=== PATIENT | male | born 1960 | race Caucasian/White ===

== ENCOUNTER 2020-05-20 12:12 | Outpatient (REF) | payer OTHER, SELFPAY | END 2020-05-20 12:13 | disposition home or self-care (01) | LOC: HO.LAB 12:12 | PROVIDERS: Visit Provider Internal Medicine | DX: Z20.828 Contact with and (suspected) exposure to other viral communicable diseases (principal) | CPT/HCPCS: C9803; U0003 ==

== ENCOUNTER 2020-06-09 09:06 | Outpatient (REF) | payer OTHER, SELFPAY ==
--- NOTE | 2020-06-09 | XR_ITS ---
EXAMINATION: XR CHEST CLINICAL INFORMATION: Cough, history of COVID 19. COMPARISON: 04/22/2012 chest radiographs. TECHNIQUE: 2 views of the chest were obtained. FINDINGS: The lungs are clear. The heart and mediastinal structures are unremarkable. XR/XR chest 2V IMPRESSION: No acute cardiopulmonary process. Given the history of COVID pneumonia, if symptoms persist or worsen, short-term repeat radiographic follow-up is recommended as clinically indicated to better assess for more acute changes.
== END 2020-06-09 09:07 | disposition home or self-care (01) ==
LOC: HO.HMGCX 09:06
PROVIDERS: PCP Internal Medicine; Visit Provider Internal Medicine
DX: R05 Cough (principal); Z86.19 Personal history of other infectious and parasitic diseases
CPT/HCPCS: 71046

== ENCOUNTER 2020-12-29 09:51 | Outpatient (RCR) | payer OTHER, SELFPAY | END 2021-06-28 13:30 | disposition home or self-care (01) | LOC: HO.WCC 09:51 | PROVIDERS: Visit Provider Surgery | DX: I87.332 Chronic venous hypertension (idiopathic) with ulcer and inflammation of left lower extremity (principal); L97.822 Non-pressure chronic ulcer of other part of left lower leg with fat layer exposed; L97.329 Non-pressure chronic ulcer of left ankle with unspecified severity; L24.89 Irritant contact dermatitis due to other agents; Z87.891 Personal history of nicotine dependence | CPT/HCPCS: 11042; 99212; 99213; 99214 ==

== ENCOUNTER 2021-03-01 12:37 | Outpatient (REF) | payer OTHER, SELFPAY ==
--- NOTE | ~2021-03-01 | US_ITS ---
EXAMINATION: RIGHT and LEFT LOWER EXTREMITY VENOUS ULTRASOUND (Reflux Exam) CLINICAL INDICATION: Wound COMPARISON: None. TECHNIQUE: Color flow triplex imaging and compression Doppler was performed to evaluate both the deep and the superficial systems on the left To evaluate the superficial system, the examination was performed in the upright position. Color-flow Doppler ultrasound and compression ultrasound were utilized. In addition, maneuvers were utilized to demonstrate reflux. FINDINGS: DEEP VENOUS ULTRASOUND OF THE LEFT LOWER EXTREMITY: Respiratory variation, normal compression and augmented flow are noted in the left common femoral vein as well as the left popliteal vein and there is no evidence of deep venous thrombosis at these locations. There is no evidence of reflux in the deep system in either the common femoral vein or the popliteal vein. . There is no evidence of a Kline's cyst. SUPERFICIAL ULTRASOUND WITH DOPPLER OF LEFT LOWER EXTREMITY: Left great saphenous vein at the saphenofemoral junction measures 7 mm, at the mid thigh 6 mm, amufq-kfk-wtyo 5 mm, przzy-tef-iiuh 5 mm, at mid calf 4 mm and at the ankle measures 4 mm. There is left greater saphenous vein reflux measuring maximum 2.3 seconds above the knee. There is an accessory medial greater saphenous vein that measures 4 mm and does not demonstrate reflux. The left small saphenous vein measures 3 to 7 mm and demonstrates 0.7 second reflux in the distal calf. There are 2 perforators in the mid thigh measuring 3 mm in the proximal calf measuring 2 mm that do not demonstrate reflux. There is a varicosity at the knee that measures 4 mm and demonstrates 1.5 second reflux. There are additional varicosities in the calf measuring between 3 and 5 mm that do not demonstrate reflux. There is left thigh shotty lymphadenopathy. US/US venous duplex LE LT IMPRESSION: No evidence of DVT or deep venous reflux. Left greater saphenous vein reflux. Left lesser saphenous vein reflux. .
== END 2021-03-01 12:38 | disposition home or self-care (01) ==
LOC: HO.US 12:37
PROVIDERS: Visit Provider Surgery
DX: I87.322 Chronic venous hypertension (idiopathic) with inflammation of left lower extremity (principal); L24.89 Irritant contact dermatitis due to other agents
CPT/HCPCS: 93971

== ENCOUNTER → 2021-05-19 12:53 | Outpatient (BNVA) | payer OTHER, SELFPAY | PROVIDERS: PCP Internal Medicine; Referring Provider Internal Medicine; Visit Provider Surgery Vascular Surgery ==

== ENCOUNTER → 2021-05-27 09:16 | Outpatient (BNVA) | payer OTHER, SELFPAY | PROVIDERS: PCP Internal Medicine; Visit Provider Surgery Vascular Surgery | DX: I83.12 Varicose veins of left lower extremity with inflammation (principal) | CPT/HCPCS: 36475 ==

== ENCOUNTER 2021-05-30 15:37 | Outpatient (REF) | payer OTHER, SELFPAY ==
--- NOTE | ~2021-05-30 | US_ITS ---
EXAMINATION: US VENOUS ULTRASOUND WITH DOPPLER LOWER EXTREMITY, LEFT CLINICAL INFORMATION: Left leg pain. Radiofrequency ablation done. COMPARISON: None TECHNIQUE: Ultrasound of the deep veins is performed from the hip to the calf with compression sonography and color and pulse Doppler assessment. Spectral analysis with color-flow imaging is performed. FINDINGS: The left greater saphenous vein is thrombosed approximately 2.9 cm from the femoral venous junction. No flow seen within the left saphenous vein. Imaging through the left common femoral, superficial femoral, profunda veins there is normal venous flow with no evidence of thrombosis. The popliteus patent as well. Below the catheter peroneal vein is not seen. The posterior tibial vein is widely patent. US/US venous duplex LE LT IMPRESSION: Occluded left greater saphenous vein measuring 2.9 cm away from the femoral venous junction. No DVT seen in the left lower extremity.
== END 2021-05-30 15:38 | disposition home or self-care (01) ==
LOC: HO.US 15:37
PROVIDERS: PCP Internal Medicine; Visit Provider Surgery Vascular Surgery
DX: M79.605 Pain in left leg (principal); Z79.899 Other long term (current) drug therapy
CPT/HCPCS: 93971

== ENCOUNTER → 2021-06-14 10:56 | Outpatient (BNVA) | payer OTHER, SELFPAY | PROVIDERS: PCP Internal Medicine; Visit Provider Surgery Vascular Surgery | DX: I83.12 Varicose veins of left lower extremity with inflammation (principal) | CPT/HCPCS: 99212 ==

== ENCOUNTER → 2021-06-17 12:25 | Outpatient (BNVA) | payer OTHER, SELFPAY | PROVIDERS: PCP Internal Medicine; Visit Provider Surgery Vascular Surgery | DX: I83.12 Varicose veins of left lower extremity with inflammation (principal); M79.605 Pain in left leg | CPT/HCPCS: 36475 ==

== ENCOUNTER 2021-06-20 12:40 | Outpatient (REF) | payer OTHER, SELFPAY ==
--- NOTE | ~2021-06-20 | US_ITS ---
EXAMINATION: US VENOUS ULTRASOUND WITH DOPPLER LOWER EXTREMITY, LEFT CLINICAL INFORMATION: This is a 61-year-old male with left leg pain. The patient has a history of radiofrequency ablation. The patient is status post occlusion of the left small saphenous vein. COMPARISON: None TECHNIQUE: Ultrasound of the deep veins is performed from the hip to the calf with compression sonography and color and pulse Doppler assessment. Spectral analysis with color-flow imaging is performed. FINDINGS: There is normal venous compression and respiratory variation and augmented flow. The visualized common femoral vein, superficial femoral vein, profunda femoral vein, popliteal vein, and the trifurcation region shows no evidence of deep venous thrombosis. There is no significant popliteal fossa cyst. The left small saphenous vein appears thrombosed 2.3 cm from the sapheno popliteal junction. There is no extension of thrombus into the deep venous system. US/US venous duplex LE LT IMPRESSION: 1. No DVT demonstrated in the left lower extremity. 2. The left small saphenous vein is thrombosed 2.3 cm from the sapheno popliteal junction.
== END 2021-06-20 12:41 | disposition home or self-care (01) ==
LOC: HO.US 12:40
PROVIDERS: PCP Internal Medicine; Visit Provider Surgery Vascular Surgery
DX: M79.605 Pain in left leg (principal)
CPT/HCPCS: 93971

== ENCOUNTER → 2021-06-30 14:54 | Outpatient (BNVA) | payer OTHER, SELFPAY | PROVIDERS: PCP Internal Medicine; Visit Provider Surgery Vascular Surgery | DX: I83.11 Varicose veins of right lower extremity with inflammation (principal); Z98.890 Other specified postprocedural states | CPT/HCPCS: 99212 ==

== ENCOUNTER 2021-07-26 15:15 | Outpatient (RCR) | payer OTHER, SELFPAY | END 2022-01-23 14:09 | disposition home or self-care (01) | LOC: HO.WCC 15:15 | PROVIDERS: PCP Internal Medicine; Visit Provider Physician Assistant | DX: I87.313 Chronic venous hypertension (idiopathic) with ulcer of bilateral lower extremity (principal); L97.822 Non-pressure chronic ulcer of other part of left lower leg with fat layer exposed; L97.812 Non-pressure chronic ulcer of other part of right lower leg with fat layer exposed; L24.89 Irritant contact dermatitis due to other agents; I10 Essential (primary) hypertension; I87.2 Venous insufficiency (chronic) (peripheral); Z87.891 Personal history of nicotine dependence | CPT/HCPCS: 11102; 17250; 88304; 99212; 99213; 99214; 99215 ==

== ENCOUNTER 2021-10-18 10:10 | Outpatient (REF) | payer OTHER, SELFPAY ==
--- NOTE | ~2021-10-18 | XR_ITS ---
EXAMINATION: X-RAY RIGHT KNEE X-RAY LEFT KNEE CLINICAL INFORMATION: Evaluate progression of osteoarthritis. COMPARISON: 08/09/2019. TECHNIQUE: 4 views of each knee. FINDINGS: Right knee: No acute fractures or malalignment. Severe osteoarthritis of the medial compartment and moderate osteoarthritis of the lateral and patellofemoral compartments are not significantly changed since 2019. Patellar enthesophytes. No erosions or chondrocalcinosis. Normal soft tissues. No joint effusions. Left knee: No acute fractures or malalignment. Severe osteoarthritis of the medial compartment and moderate osteoarthritis of the lateral patellofemoral compartments are not significantly changed since 2019. Patellar enthesophytes. No erosions or chondrocalcinosis. No joint effusions. Normal soft tissues. XR/XR knee RT 4V IMPRESSION: No acute fractures or malalignment. No significant progression since 2019 with redemonstration of severe bilateral medial compartmental osteoarthritis and moderate patellofemoral and lateral compartmental osteoarthritis.
--- NOTE | ~2021-10-18 | XR_ITS ---
EXAMINATION: X-RAY RIGHT KNEE X-RAY LEFT KNEE CLINICAL INFORMATION: Evaluate progression of osteoarthritis. COMPARISON: 08/09/2019. TECHNIQUE: 4 views of each knee. FINDINGS: Right knee: No acute fractures or malalignment. Severe osteoarthritis of the medial compartment and moderate osteoarthritis of the lateral and patellofemoral compartments are not significantly changed since 2019. Patellar enthesophytes. No erosions or chondrocalcinosis. Normal soft tissues. No joint effusions. Left knee: No acute fractures or malalignment. Severe osteoarthritis of the medial compartment and moderate osteoarthritis of the lateral patellofemoral compartments are not significantly changed since 2019. Patellar enthesophytes. No erosions or chondrocalcinosis. No joint effusions. Normal soft tissues. XR/XR knee LT 4V IMPRESSION: No acute fractures or malalignment. No significant progression since 2019 with redemonstration of severe bilateral medial compartmental osteoarthritis and moderate patellofemoral and lateral compartmental osteoarthritis.
== END 2021-10-18 10:11 | disposition home or self-care (01) ==
LOC: HO.XRAY 10:10
PROVIDERS: PCP Internal Medicine; Visit Provider Internal Medicine
DX: M17.0 Bilateral primary osteoarthritis of knee (principal)
CPT/HCPCS: 73564

== ENCOUNTER 2021-12-20 10:03 | Outpatient (REF) | payer OTHER, SELFPAY ==
--- NOTE | ~2021-12-20 | US_ITS ---
EXAMINATION: RIGHT AND LEFT LOWER EXTREMITY VENOUS ULTRASOUND (REFLUX EXAM) CLINICAL INDICATION: Venous insufficiency and ulcers. COMPARISON: 06/20/2021 and studies dating back to 04/02/2018 TECHNIQUE: Color flow triplex imaging and compression Doppler was performed to evaluate both the deep and the superficial systems bilaterally. To evaluate the superficial system, the examination was performed in the upright position. Color-flow Doppler ultrasound and compression ultrasound were utilized. In addition, maneuvers were utilized to demonstrate reflux. FINDINGS: 1. DEEP VENOUS ULTRASOUND OF THE RIGHT LOWER EXTREMITY: Respiratory variation, normal compression and augmented flow are noted in the right common femoral vein as well as the right popliteal vein and there is no evidence of deep venous thrombosis at these locations. There is no evidence of reflux in the deep system in either the common femoral vein or the popliteal vein. There is a 3.9 x 1.3 x 3.9 cm popliteal fossa cyst. 2. SUPERFICIAL ULTRASOUND WITH DOPPLER OF RIGHT LOWER EXTREMITY: The right great saphenous vein at the saphenofemoral junction measures 9 mm, at the midthigh 4 mm, rwmck-zkc-whbe 4 mm, wjzrv-hzz-bhud 3 mm, at midcalf 3 mm and at the ankle measures 3 mm. No venous insufficiency is seen at the saphenofemoral junction or proximal thigh. At the mid thigh, there is reflux of 1.6 seconds. From knee through ankle there is reflux seen out to greater than 3 seconds, at the knee, zxhvo-mud-lnng, mid calf, and L2, 2 seconds at the ankle. The right small saphenous vein measures 3 mm and shows no reflux. Within the proximal calf there is a 2 mm handwriting expert without reflux. Varicose veins are seen within the proximal thigh without reflux, at the knee measuring up to 3 mm in diameter and with reflux greater than 3 seconds, and in the mid calf where there is no reflux. 3. DEEP VENOUS ULTRASOUND OF THE LEFT LOWER EXTREMITY: Respiratory variation, normal compression and augmented flow are noted in the left common femoral vein as well as the left popliteal vein and there is no evidence of deep venous thrombosis at these locations. There is no evidence of reflux in the deep system in either the common femoral vein or the popliteal vein. There is a 6.1 x 1.8 x 3.8 cm popliteal fossa cyst. 4. SUPERFICIAL ULTRASOUND WITH DOPPLER OF LEFT LOWER EXTREMITY: Left great saphenous vein at the saphenofemoral junction measures 8 mm, at the midthigh 2 mm, impux-qrr-dwuw 3 mm, lrrpb-vaj-bolk 5 mm, at midcalf 3 mm and at the ankle measures 6 mm. The only reflux identified is at the ankle of greater than 3 seconds. The left small saphenous vein measures 5 mm and shows no reflux. There is a 3 mm handwriting expert within the distal small saphenous vein off of the posterior tibial vein with reflux time of approximately 0.7 seconds. Within the mid thigh and calf, there are 3 mm perforators without reflux. Varicosities are seen within the proximal thigh without reflux, in the mid thigh with reflux up to 1.6 seconds, and within the distal calf without reflux. Status post RFA with greater saphenous vein thrombosis approximately 3.8 cm from the saphenofemoral junction. US/US venous duplex LE BI IMPRESSION: 1. No evidence of acute deep venous thrombosis of the right or left lower extremities. 2. No evidence of reflux at the level of the saphenofemoral junctions or proximal thigh bilaterally. Reflux is noted within the greater saphenous vein at the mid thigh and from the knee to ankle. Left lower extremity greater saphenous vein reflux seen only at the ankle. 3. Bilateral popliteal fossa cysts.
== END 2021-12-20 10:04 | disposition home or self-care (01) ==
LOC: HO.US 10:03
PROVIDERS: Absent Provider Surgery Vascular Surgery; Visit Provider Physician Assistant
DX: L97.822 Non-pressure chronic ulcer of other part of left lower leg with fat layer exposed (principal); L97.812 Non-pressure chronic ulcer of other part of right lower leg with fat layer exposed; I87.2 Venous insufficiency (chronic) (peripheral)
CPT/HCPCS: 93970

== ENCOUNTER → 2021-12-22 09:12 | Outpatient (BNVA) | payer OTHER, SELFPAY | PROVIDERS: PCP Internal Medicine; Visit Provider Surgery Vascular Surgery | DX: I83.11 Varicose veins of right lower extremity with inflammation (principal) | CPT/HCPCS: 99212 ==

== ENCOUNTER → 2021-12-23 07:22 | Outpatient (BNVA) | payer OTHER, SELFPAY | PROVIDERS: PCP Internal Medicine; Visit Provider Surgery Vascular Surgery | DX: I83.11 Varicose veins of right lower extremity with inflammation (principal) | CPT/HCPCS: 36475 ==

== ENCOUNTER 2021-12-26 13:35 | Outpatient (REF) | payer OTHER, SELFPAY ==
--- NOTE | ~2021-12-26 | US_ITS ---
EXAMINATION: TRIPLEX SCANNING OF RIGHT LOWER EXTREMITY; SUPERFICIAL ULTRASOUND WITH DOPPLER OF RIGHT LOWER EXTREMITY CLINICAL INFORMATION: Status post ablation of the right great saphenous vein. Originally performed on 12/23/2021. COMPARISON: 12/20/2021. TECHNIQUE: Color flow triplex imaging and compression Doppler were performed as well as superficial ultrasound with Doppler. FINDINGS: TRIPLEX SCANNING OF RIGHT LOWER EXTREMITY: Respiratory variation, normal compression and augmented flow are noted throughout the lower extremity. The visualized common femoral vein, femoral vein, profunda femoral vein, popliteal vein and the calf veins show no evidence of deep venous thrombosis. There is no evidence of Kline's cyst. SUPERFICIAL ULTRASOUND WITH DOPPLER OF RIGHT LOWER EXTREMITY: The right great saphenous vein is occluded from the access site to just before the sapheno-femoral junction. There is no extension of thrombus into the deep system. US/US venous duplex LE RT IMPRESSION: 1. Normal triplex scan of the right without evidence of deep venous thrombosis. 2. Excellent appearance status post ablation of the right great saphenous vein.
== END 2021-12-26 13:36 | disposition home or self-care (01) ==
LOC: HO.US 13:35
PROVIDERS: Visit Provider Surgery Vascular Surgery
DX: M79.604 Pain in right leg (principal)
CPT/HCPCS: 93971

== ENCOUNTER → 2022-01-12 14:59 | Outpatient (BNVA) | payer OTHER, SELFPAY | PROVIDERS: PCP Internal Medicine; Visit Provider Surgery Vascular Surgery | DX: I83.11 Varicose veins of right lower extremity with inflammation (principal) | CPT/HCPCS: 99212 ==

== ENCOUNTER 2022-01-16 12:06 | Outpatient (REF) | payer OTHER, SELFPAY ==
--- NOTE | ~2022-01-16 | XR_ITS ---
EXAMINATION: XR KNEE AP STANDING CLINICAL INFORMATION: Pain COMPARISON: Previous x-rays most recent October 2021 TECHNIQUE: AP bilateral standing view of the knees was obtained. FINDINGS: There is bilateral medial femoral tibial arthritis with joint space narrowing and osteophyte formation. XR/XR knee standing BI IMPRESSION: Bilateral arthritis at the medial femoral tibial joints.
== END 2022-01-16 12:07 | disposition home or self-care (01) ==
LOC: HO.HOSX 12:06
PROVIDERS: Visit Provider Orthopaedic Surgery
DX: M17.0 Bilateral primary osteoarthritis of knee (principal)
CPT/HCPCS: 73565; 99202

== ENCOUNTER 2022-03-29 12:26 | Outpatient (REF) | payer OTHER, SELFPAY ==
--- NOTE | ~2022-03-29 | XR_ITS ---
EXAMINATION: XR LUMBOSACRAL SPINE CLINICAL INFORMATION: Pain. COMPARISON: No similar priors. TECHNIQUE: Three views of the lumbosacral spine. FINDINGS: No acute compression deformities or malalignment. Severe disc space narrowing and facet arthropathy with neural foraminal encroachment and canal narrowing at L4-L5 and L5-S1. Mild to moderate lumbar spondylosis elsewhere. Prominent multilevel anterior marginal osteophytes are noted. SI joints are symmetric. No significant soft tissue abnormality except for atherosclerotic disease of the abdominal aorta. XR/XR lumbar spine 2-3V IMPRESSION: 1. No acute compression deformities or malalignment. 2. Severe lumbar spondylosis at L4-L5 and L5-S1.
== END 2022-03-29 12:27 | disposition home or self-care (01) ==
LOC: HO.HMGCX 12:26
PROVIDERS: PCP Internal Medicine; Visit Provider Internal Medicine
DX: M54.50 Low back pain, unspecified (principal)
CPT/HCPCS: 72100

== ENCOUNTER 2022-03-31 08:30 | Outpatient (RCR) | payer OTHER, SELFPAY | END 2022-05-30 11:50 | disposition home or self-care (01) | LOC: HO.WCC 08:30 | PROVIDERS: PCP Internal Medicine; Visit Provider Physician Assistant | DX: I87.312 Chronic venous hypertension (idiopathic) with ulcer of left lower extremity (principal); L97.322 Non-pressure chronic ulcer of left ankle with fat layer exposed; G62.9 Polyneuropathy, unspecified; L30.9 Dermatitis, unspecified; Z87.891 Personal history of nicotine dependence | CPT/HCPCS: 17250; 97597; 97602; 99212; 99213 ==

== ENCOUNTER 2022-04-14 07:22 | Outpatient (REF) | payer OTHER, SELFPAY ==
--- NOTE | ~2022-04-14 | MR_ITS ---
EXAMINATION: MR LUMBAR SPINE WITHOUT CONTRAST CLINICAL INFORMATION: Lumbar pain. X-ray shows severe spondylosis L4-S1. Rule out disc/stenosis. COMPARISON: None TECHNIQUE: MRI of the lumbar spine was obtained using routine sequences without contrast. FINDINGS: The lumbar vertebral bodies maintain normal heights and alignment. There is severe disc height loss at L5-S1 and mild multilevel disc height loss at other levels. There is no bone marrow edema. The distal spinal cord appears normal. The conus medullaris terminates normally at the L1 level. There is moderate to severe fatty atrophy of the posterior paraspinal musculature. Enlarged but benign-appearing retroperitoneal lymph nodes are demonstrated, similar compared with the abdominal CT from 09/01/2019. SPINAL LEVELS: L1-L2: Disc bulging with ligament flavum infolding, facet arthropathy, and epidural lipomatosis resulting in mild spinal canal stenosis. No neural foraminal stenosis. L2-L3: Disc bulging with ligament flavum infolding, facet arthropathy, and epidural lipomatosis resulting in moderate spinal canal stenosis. Mild left neural foraminal stenosis. L3-L4: Disc bulging with ligament flavum infolding, moderate facet arthropathy and epidural lipomatosis resulting in moderate to severe spinal canal stenosis and left more than right subarticular stenosis. Left foraminal/extraforaminal protrusion contacts the exiting left L3 nerve root. L4-L5: Disc bulging with ligamentum flavum infolding, moderate to severe facet arthropathy, and epidural lipomatosis results in mild to moderate spinal canal stenosis and bilateral subarticular stenosis with compression of the traversing right L5 nerve root. Disc bulging with osteophytic ridging compresses the exiting right L4 nerve root. L5-S1: Disc bulging with moderate to severe facet arthropathy results in left more than right subarticular stenosis and mild left neural foraminal stenosis with abutment of the exiting left L5 nerve root. A small sequestered disc fragment is seen posterior to the L5 vertebral body without associated nerve root compression. MR/MR lumbar spine wo con IMPRESSION: 1. Multilevel degenerative spondylotic changes in the setting of significant epidural lipomatosis. Moderate to severe fatty atrophy of the posterior paraspinal muscles. 2. At L2-L3 there is moderate spinal canal stenosis. 3. At L3-L4 there is moderate to severe spinal canal stenosis and left more than right subarticular stenosis. Left foraminal/extraforaminal protrusion contacts the exiting left L3 nerve root. 4. At L4-L5 there is mild to moderate spinal canal stenosis and bilateral subarticular stenosis with compression of the traversing right L5 nerve root. Disc bulging with osteophytic ridging compresses the exiting right L4 nerve root. 5. At L5-S1 there is left more than right subarticular stenosis with abutment of the exiting left L5 nerve root. A small sequestered disc fragment is seen posterior to the L5 vertebral body without associated nerve root compression.
== END 2022-04-14 07:23 | disposition home or self-care (01) ==
LOC: HO.MRI 07:22
PROVIDERS: Visit Provider Internal Medicine
DX: M54.50 Low back pain, unspecified (principal)
CPT/HCPCS: 72148

== ENCOUNTER 2023-03-26 07:57 | Outpatient (RCR) | payer OTHER, SELFPAY | END 2023-05-21 17:00 | disposition home or self-care (01) | LOC: HO.WCC 07:57 | PROVIDERS: PCP Internal Medicine; Visit Provider Physician Assistant | DX: Z09 Encounter for follow-up examination after completed treatment for conditions other than malignant neoplasm (principal); I73.9 Peripheral vascular disease, unspecified; I87.2 Venous insufficiency (chronic) (peripheral); G62.9 Polyneuropathy, unspecified; L30.9 Dermatitis, unspecified; I89.0 Lymphedema, not elsewhere classified; Z87.891 Personal history of nicotine dependence; Z87.2 Personal history of diseases of the skin and subcutaneous tissue | CPT/HCPCS: 11042; 11045; 17250; 99212 ==

== ENCOUNTER 2024-02-14 09:47 | Outpatient (AMB) | payer OTHER, SELFPAY ==
--- NOTE | 2024-02-14 09:48 | MHC.OFFVIS ---
Vital Signs 02/14/24 09:50 Height 6 ft Weight 367 lb BMI 49.8 Intake Visit Reasons: Colonoscopy Screening Intake Note: This patient presents for recall Colonoscopy Screening. Pt c/o; Last colonoscopy: 07/12/2012 Store Host Required: No Accompanied by: Self / Same As Patient Allergies famotidine Allergy (Verified 02/14/24 09:48) Itching epidural medication Allergy (Unknown, Uncoded 02/14/24 09:48) vomiting - hallucinations Medication List - Last Reconciled 02/14/24 by Praful Calvillo MD gabapentin mg PO lisinopril 10 mg PO DAILY losartan 50 mg PO DAILY metoprolol succinate ER 50 mg PO DAILY risperidone 3 mg PO BEDTIME simvastatin 20 mg PO BEDTIME sulindac 200 mg PO BID trazodone 300 mg PO BEDTIME HPI HPI Colonoscopy Screening: Details: 64-year-old male here to schedule for screening colonoscopy. His last colonoscopy was in 2012 He has a history of emergency Norbert's procedure for perforated diverticulitis in 2012. He had his colostomy reversed in 2013. He currently denies significant complaints. He does admit to having frequent loose stools and says that this is due to his multiple medications He says he has gained a lot of weight the years. He also has chronic back problems now and has difficulty moving around ambulating. He says he is on disability because of this. He is a saw a diabetic. [facility] Medical History (Updated 02/14/24 @ 10:12 by Praful Calvillo MD) Morbid obesity Neuropathy Borderline diabetic Chronic back pain Colon cancer screening Surgical History No pertinent past surgical history Family History (Updated 02/14/24 @ 10:00 by Helen Langford Gregor) Other Family history unknown Social History Unable to assess alcohol history related to: Unknown Patient Tobacco Use Status: Tobacco use Unknown Review of Systems Const Denies chills and Denies fever(s) Card Denies chest pain, Denies dyspnea and Reports dyspnea on exertion Resp Denies cough, Denies dyspnea and Reports dyspnea on exertion GI Denies hematochezia and Denies change in bowel habits Denies hematuria and Denies difficulty urinating Musc Reports abnormal gait, Reports back pain, Reports myalgias, Reports arthralgias and Reports limited range of motion Neuro Reports abnormal gait, Denies focal weakness and Denies convulsions Psych Denies depression and Denies mood swings Physical Exam Const Other: Appears morbidly obese, walks with a cane General: comfortable and no acute distress Orientation/consciousness: patient oriented x3 Neck Neck: Yes no lymphadenopathy Resp Auscultation: clear to auscultation bilaterally Cardio Rhythm: regular rhythm GI Other: Very protuberant of the abdomen, large, multiple hernias with of his bowel loop involvement, loss of domain, nontender, reducible Palpation (GI): Soft to palpation, nontender and no guarding Neuro General: patient oriented x3 Assessment & Plan Assessment & Plan (1) Colon cancer screening: Code(s): Z12.11 - Encounter for screening for malignant neoplasm of colon Category: Medical Plan: I reviewed with him the technique of colonoscopy for screening. I explained the risks including but not limited to bleeding and perforation, as well as the benefits and alternatives. He does have multiple medical issues and is morbidly obese now. He has large and multiple abdominal wall hernias with bowel loops. I explained to him the risks of injury to this bowel loops in view of his hernias. I explained the option of doing a Cologuard test as a screening tool. He says he would rather go for a Cologuard test for now. He is planning to do a weight loss program in view of his morbid obesity. Coding Level of Care Code New Pt Level 3 (39196) Diagnoses Colon cancer screening Z12.11
[2024-02-14 09:50] VITALS: BMI 49.8
== END 2024-02-14 10:08 | disposition home or self-care (01) ==
PROVIDERS: PCP Internal Medicine; Visit Provider Surgery
DX: Z12.11 Encounter for screening for malignant neoplasm of colon (principal)
CPT/HCPCS: 99203

== ENCOUNTER → 2024-02-14 09:47 | Outpatient (BNVA) | payer OTHER, SELFPAY | PROVIDERS: PCP Internal Medicine; Visit Provider Surgery | DX: Z12.11 Encounter for screening for malignant neoplasm of colon (principal) | CPT/HCPCS: 99202 ==

== ENCOUNTER 2024-07-07 05:48 | Day surgery (SDC) | payer OTHER, SELFPAY ==
--- NOTE | 2024-07-03 13:32 | P.CONAN_ITS ---
Documented by User: Rossy Hinton NP 07/03/24 13:33 HPI - Anesthesia Eval Consult details Narrative: 64yo M for Left Cataract Extraction IOL Insertion No previous cataract on record PMF Active Problems Active Problems: All Active Problems Morbid obesity (Acute) Neuropathy (Acute) Borderline diabetic (Acute) Chronic back pain (Acute) Colon cancer screening (Acute) Bilateral primary osteoarthritis of knee (Acute) Varicose veins of right lower extremity with inflammation (Acute) Varicose veins of left lower extremity with inflammation (Acute) Past Medical History Medical History (Updated 07/03/24 @ 14:08 by Jigna Lu RN) Diabetes HTN (hypertension) Morbid obesity Neuropathy Borderline diabetic Chronic back pain Colon cancer screening Family History Family History (Updated 02/14/24 @ 10:00 by RAJIV Grace) Other Family history unknown Surgical History Surgical History (Updated 07/07/24 @ 07:06 by Jaqueline Garcia RN) History of facial surgery History of colostomy reversal Status post ablation of incompetent vein using laser Social History Social History (Updated 02/14/24 @ 10:01 by RAJIV Grace) Unable to assess alcohol history related to: Unknown Patient Tobacco Use Status: Tobacco use Unknown Advance Directives: No Advance Directives Information Provided: Yes Advance Directives on File: No Meds Allergies Allergy/AdvReac Type Severity Reaction Status Date / Time famotidine Allergy Itching Verified 02/14/24 09:48 epidural medication Allergy Unknown vomiting - Uncoded 02/14/24 09:48 hallucinations Home Medications ?Medication ?Instructions ?Recorded ?Confirmed ?Last Taken ?Type gabapentin 100 mg capsule 300 mg PO TID 05/19/21 07/03/24 07/07/24 History metoprolol succinate 50 mg 100 mg PO DAILY 05/19/21 07/03/24 07/07/24 History tablet,extended release 24 hr simvastatin 20 mg tablet 20 mg PO BEDTIME 05/19/21 07/03/24 Unknown History sulindac 200 mg tablet 200 mg PO BID 05/19/21 07/03/24 Unknown History trazodone 300 mg tablet 300 mg PO BEDTIME 05/19/21 07/03/24 Unknown History losartan 50 mg tablet 100 mg PO DAILY 12/22/21 07/03/24 Unknown History glyburide 2.5 mg tablet 2.5 mg PO BID 07/03/24 07/03/24 Unknown History melatonin 5 mg tablet 5 mg PO BEDTIME 07/03/24 07/03/24 Unknown History otvgnpasgedp-zoxlxnwh-vvfpiz tablet 1 tab PO DAILY 07/03/24 07/03/24 Unknown History risperidone 0.5 mg tablet 0.5 mg PO BID 07/03/24 07/03/24 Unknown History Imodium 07/07/24 07/07/24 History Assessment and Plan Assessment Anesthesia Assessment: Chart Reviewed Documented by User: Frances Blount MD 07/07/24 07:22 [facility] Past Medical History Medical History (Updated 07/03/24 @ 14:08 by Jigna Lu RN) Diabetes HTN (hypertension) Morbid obesity Neuropathy Borderline diabetic Chronic back pain Colon cancer screening Family History Family History (Updated 02/14/24 @ 10:00 by RAJIV Grace) Other Family history unknown Family history of problems with anesthesia: No Surgical History Surgical History (Updated 07/07/24 @ 07:06 by Jaqueline Garcia RN) History of facial surgery History of colostomy reversal Status post ablation of incompetent vein using laser History of Problems with Anesthesia: No Social History Social History (Updated 02/14/24 @ 10:01 by RAJIV Grace) Unable to assess alcohol history related to: Unknown Patient Tobacco Use Status: Tobacco use Unknown Advance Directives: No Advance Directives Information Provided: Yes Advance Directives on File: No Meds Allergies Allergy/AdvReac Type Severity Reaction Status Date / Time famotidine Allergy Itching Verified 02/14/24 09:48 epidural medication Allergy Unknown vomiting - Uncoded 02/14/24 09:48 hallucinations Home Medications ?Medication ?Instructions ?Recorded ?Confirmed ?Last Taken ?Type gabapentin 100 mg capsule 300 mg PO TID 05/19/21 07/03/24 07/07/24 History metoprolol succinate 50 mg 100 mg PO DAILY 05/19/21 07/03/24 07/07/24 History tablet,extended release 24 hr simvastatin 20 mg tablet 20 mg PO BEDTIME 05/19/21 07/03/24 Unknown History sulindac 200 mg tablet 200 mg PO BID 05/19/21 07/03/24 Unknown History trazodone 300 mg tablet 300 mg PO BEDTIME 05/19/21 07/03/24 Unknown History losartan 50 mg tablet 100 mg PO DAILY 12/22/21 07/03/24 Unknown History glyburide 2.5 mg tablet 2.5 mg PO BID 07/03/24 07/03/24 Unknown History melatonin 5 mg tablet 5 mg PO BEDTIME 07/03/24 07/03/24 Unknown History rhzxlcwbzjch-ieqnmgsu-lbrucx tablet 1 tab PO DAILY 07/03/24 07/03/24 Unknown History risperidone 0.5 mg tablet 0.5 mg PO BID 07/03/24 07/03/24 Unknown History Imodium 07/07/24 07/07/24 History Exam Airway Mallampati Class: III (caps everything) TM Dist: >3cm Neck ROM: Full Heart: rrr Lungs: cta Assessment and Plan Assessment Anesthesia Assessment: Anesthesia Plan Discussed Final Anesthetic Review Family History of Problems with Anesthesia: No History of Problems with Anesthesia: No NPO: Yes ASA Class: III Final Preanesthetic Review: No Changes in Pt Med Stat, Meds/Allgs Chart Reviewed and Consent Obtained/Reviewed Patient Risk: Intermediate Procedure Risk: Low Anesthetic Plan Anesthetic Plan: MAC: Disposition: Standard PACU
[2024-07-03 14:20] VITALS: BMI 47.2
[2024-07-07 07:17] LABS: Glucose, Whole Blood 133 mg/dL (60-115)
[2024-07-07 07:18] VITALS: BP 168/81; PULSE 60; RESP 16; TEMP 37.2; O2SAT 96
[2024-07-07] MEDS: Tropicamide 1 % Ophth Sol 3 ML BTL 1 DROP EYE-LEFT ×3 (07:23→07:28)
[2024-07-07] MEDS: Tetracaine HCl/PF 0.5% Oph Sol 4 ML DROPS 1 DROP EYE-LEFT (07:23)
[2024-07-07] MEDS: Cyclopentolate 1 % Ophth Sol 2 ML DRPBTL 1 DROP EYE-LEFT ×3 (07:23→07:27)
[2024-07-07] MEDS: Phenylephrine HCL 2.5% Oph SoL 2 ML BOTTLE 1 DROP EYE-LEFT ×3 (07:24→07:29)
[2024-07-07] MEDS: Ketorolac Tromethamine 0.5% Op 10 ML DROPS 1 DROP EYE-LEFT ×3 (07:24→07:29)
--- NOTE | 2024-07-07 07:24 | HO.ANESPROP2 ---
[facility] Active Problems Active Problems: All Active Problems Bilateral primary osteoarthritis of knee (Acute) Varicose veins of right lower extremity with inflammation (Acute) Varicose veins of left lower extremity with inflammation (Acute) Morbid obesity (Acute) Neuropathy (Acute) Borderline diabetic (Acute) Chronic back pain (Acute) Colon cancer screening (Acute) Past Medical History Medical History (Updated 07/03/24 @ 14:08 by Jigna Lu RN) Diabetes HTN (hypertension) Morbid obesity Neuropathy Borderline diabetic Chronic back pain Colon cancer screening Family History Family History (Updated 02/14/24 @ 10:00 by RAJIV Grace) Other Family history unknown Family history of problems with anesthesia: No Surgical History Surgical History (Updated 07/07/24 @ 07:06 by Jaqueline Garcia RN) History of facial surgery History of colostomy reversal Status post ablation of incompetent vein using laser History of Problems with Anesthesia: No Social History Social History (Updated 02/14/24 @ 10:01 by RAJIV Grace) Unable to assess alcohol history related to: Unknown Patient Tobacco Use Status: Tobacco use Unknown Advance Directives: No Advance Directives Information Provided: Yes Advance Directives on File: No Meds Allergies Allergy/AdvReac Type Severity Reaction Status Date / Time famotidine Allergy Itching Verified 02/14/24 09:48 epidural medication Allergy Unknown vomiting - Uncoded 02/14/24 09:48 hallucinations Active Medications: Current Medications Lactated Ringer's (Lr) 500 mls @ 50 mls/hr IV .Q10H COLLETTE Stop: 07/07/24 16:59 Naloxone HCl (Naloxone Hcl 0.4 Mg/Ml Vial) 0.04 mg IVPUSH Q5M PRN PRN Reason: Excessive sedation or RR < 8 Povidone Iodine (Povidone Iodine 5 % Ophth Soln 30 Ml Bottle) 1 appl EYE-LEFT PREOP PRN PRN Reason: Pre-Op Surgical Implant Prophy Home Medications ?Medication ?Instructions ?Recorded ?Confirmed ?Last Taken ?Type gabapentin 100 mg capsule 300 mg PO TID 05/19/21 07/03/24 07/07/24 History metoprolol succinate 50 mg 100 mg PO DAILY 05/19/21 07/03/24 07/07/24 History tablet,extended release 24 hr simvastatin 20 mg tablet 20 mg PO BEDTIME 05/19/21 07/03/24 Unknown History sulindac 200 mg tablet 200 mg PO BID 05/19/21 07/03/24 Unknown History trazodone 300 mg tablet 300 mg PO BEDTIME 05/19/21 07/03/24 Unknown History losartan 50 mg tablet 100 mg PO DAILY 12/22/21 07/03/24 Unknown History glyburide 2.5 mg tablet 2.5 mg PO BID 07/03/24 07/03/24 Unknown History melatonin 5 mg tablet 5 mg PO BEDTIME 07/03/24 07/03/24 Unknown History ptqytlflzexs-ycbgzlze-gpuwld tablet 1 tab PO DAILY 07/03/24 07/03/24 Unknown History risperidone 0.5 mg tablet 0.5 mg PO BID 07/03/24 07/03/24 Unknown History Imodium 07/07/24 07/07/24 History Exam Height,Weight and Vital Signs: Height 6 ft Weight 157.85 kg Last Vital Signs Temp 99.0 F 07/07/24 07:18 Pulse 60 07/07/24 07:18 Resp 16 07/07/24 07:18 BP 168/81 H 07/07/24 07:18 Pulse Ox 96 07/07/24 07:18 O2 Del Method Room Air 07/07/24 07:18 Pertinent Lab Results Pertinent Lab Results: Laboratory Tests 07/07/24 07:14 POC Glucose 133 H Airway Mallampati Class: II TM Dist: >3cm Neck ROM: Full Denture: Upper Heart: rrr Lungs: cta Assessment and Plan Assessment Anesthesia Assessment: Anesthesia Plan Discussed and Chart Reviewed Final Anesthetic Review Family History of Problems with Anesthesia: No History of Problems with Anesthesia: No NPO: Yes ASA Class: II Final Preanesthetic Review: No Changes in Pt Med Stat, Meds/Allgs Chart Reviewed and Consent Obtained/Reviewed Patient Risk: Low Procedure Risk: Low Anesthetic Plan Anesthetic Plan: MAC: Disposition: Standard PACU
[2024-07-07] MEDS: Lactated Ringers 500 ML 50 ML IV (07:30)
--- NOTE | 2024-07-07 07:44 | MHC.SHP ---
Pre-Procedural Eval Section A - 24 Hr Update-Section A only Date of Service: 07/07/24 The patient is an INPATIENT: No Changes since office visit: No Cold of Flu in the past 2 weeks, No New Medical Problems, No Changes in Medication and No Patient answered all questions The patient has been examined within 24 hours of the surgical procedure. The History & Physical has been completed within 30 days and I have reviewed it.: Yes Section B - Complete if H&P > 30 days Chief Complaint: Age-related nuclear cataract, left eye Allergies: Allergies Allergy/AdvReac Type Severity Reaction Status Date / Time famotidine Allergy Itching Verified 02/14/24 09:48 epidural medication Allergy Unknown vomiting - Uncoded 02/14/24 09:48 hallucinations Plan Diagnosis/Plan: Unchanged I have reviewed the history and physical and performed a pertinent physical examination on my patient. No changes have occurred unless specified. Time Spent With Patient Time: Total time managing care of this patient today ____ minutes.
--- NOTE | 2024-07-07 07:45 | HO.PNOPHT ---
Ophthalmology Procedure Procedure Date of Service: 07/07/24 Ophthalmology Viscoelastic: Healon Duet Dual Pack Pro Ophthalmology Lenses: IOL Acrysof MP - MA60AC (20) Procedure Notes: PREOPERATIVE DIAGNOSIS: Decreased visual acuity left eye secondary to cataract POSTOPERATIVE DIAGNOSIS: Same PROCEDURE: Left cataract extraction with intraocular lens insertion SURGEON: Wong Suarez M.D. ANESTHESIA: Topical/MAC ESTIMATED BLOOD LOSS: None COMPLICATIONS: None After obtaining informed consent, the patient was brought to the operation room suite and placed in the supine position. After adequate sedation per anesthesia, topical drops of Tetracaine were given to the left eye. The eye was then prepped and draped in the usual sterile fashion. The operating room microscope was then positioned over the operative eye and a lid speculum placed. A paracentesis was created. Viscoelastic was then instilled into the anterior chamber. A three plane incision was then created temporally, utilizing a 2.85 mm keratome. Capsulotomy forceps were then utilized to create a circular tear capsulotomy. Hydrodissection and hydrodelineation were carried out until adequate mobilization of the nucleus occurred. Phacoemulsification was then utilized to remove the dense central nucleus followed by removal of the cortical material utilizing the automated aspiration irrigation unit. Viscoat elastic was instilled into the posterior capsular bag followed by placement of a posterior chamber intraocular lens without difficulty. The residual Viscoat elastic was then removed utilizing the automated IA machine. The wound was check and found to be watertight. The patient tolerated the procedure well and the lid speculum was removed. Intracameral injection of Vigamox 0.1 mL followed by a subtenon injection of Kenalog-40 0.2 mL were administered. The patient will be seen in the a.m.
[2024-07-07 08:11] VITALS: BP 134/56; PULSE 52; RESP 18; TEMP 36.6; O2SAT 98
== END 2024-07-07 08:15 | disposition home or self-care (01) ==
PROVIDERS: PCP Internal Medicine; Visit Provider Ophthalmology
PROC: (CPT 66985; principal; 2024-07-07 08:00)
DX: H25.12 Age-related nuclear cataract, left eye (principal); H52.4 Presbyopia; H35.033 Hypertensive retinopathy, bilateral; H04.123 Dry eye syndrome of bilateral lacrimal glands; H31.003 Unspecified chorioretinal scars, bilateral; I10 Essential (primary) hypertension; E11.9 Type 2 diabetes mellitus without complications; E78.00 Pure hypercholesterolemia, unspecified; Z79.84 Long term (current) use of oral hypoglycemic drugs; Z79.899 Other long term (current) drug therapy; Z88.8 Allergy status to other drugs, medicaments and biological substances; Z87.891 Personal history of nicotine dependence
CPT/HCPCS: 66984; 82947; J2250; J3010; J3301; V2630

== ENCOUNTER 2024-07-21 06:23 | Day surgery (SDC) | payer OTHER, SELFPAY ==
[2024-07-03 14:25] VITALS: BMI 47.2
--- NOTE | 2024-07-17 13:01 | HO.ANESPROP2 ---
Documented by User: Rossy Hinton NP 07/17/24 13:02 HPI - Anesthesia Eval Consult details Narrative: 64yo M for Right Cataract Extraction IOL Insertion Left eye 07/07/24: Midaz 2 PMFSH Active Problems Active Problems: All Active Problems Bilateral primary osteoarthritis of knee (Acute) Varicose veins of right lower extremity with inflammation (Acute) Varicose veins of left lower extremity with inflammation (Acute) Morbid obesity (Acute) Neuropathy (Acute) Borderline diabetic (Acute) Chronic back pain (Acute) Colon cancer screening (Acute) Past Medical History Medical History Diabetes HTN (hypertension) Morbid obesity Neuropathy Borderline diabetic Chronic back pain Colon cancer screening Family History Family History Other Family history unknown Family history of problems with anesthesia: No Surgical History Surgical History History of facial surgery History of colostomy reversal Status post ablation of incompetent vein using laser History of Problems with Anesthesia: No Social History Social History Unable to assess alcohol history related to: Unknown Patient Tobacco Use Status: Tobacco use Unknown Advance Directives: No Advance Directives Information Provided: Yes Advance Directives on File: No Meds Allergies Allergy/AdvReac Type Severity Reaction Status Date / Time famotidine Allergy Itching Verified 07/21/24 07:20 epidural medication Allergy Unknown vomiting - Uncoded 02/14/24 09:48 hallucinations Home Medications ?Medication ?Instructions ?Recorded ?Confirmed ?Last Taken ?Type gabapentin 100 mg capsule 300 mg PO TID 05/19/21 07/03/24 07/07/24 History metoprolol succinate 50 mg 100 mg PO DAILY 05/19/21 07/03/24 07/07/24 History tablet,extended release 24 hr simvastatin 20 mg tablet 20 mg PO BEDTIME 05/19/21 07/03/24 Unknown History sulindac 200 mg tablet 200 mg PO BID 05/19/21 07/03/24 Unknown History trazodone 300 mg tablet 300 mg PO BEDTIME 05/19/21 07/03/24 Unknown History losartan 50 mg tablet 100 mg PO DAILY 12/22/21 07/03/24 Unknown History glyburide 2.5 mg tablet 2.5 mg PO BID 07/03/24 07/03/24 Unknown History melatonin 5 mg tablet 5 mg PO BEDTIME 07/03/24 07/03/24 Unknown History vlzoeldsdwls-dhfsaksk-xxwmsg tablet 1 tab PO DAILY 07/03/24 07/03/24 Unknown History risperidone 0.5 mg tablet 0.5 mg PO BID 07/03/24 07/03/24 Unknown History Imodium 07/07/24 07/07/24 History Exam Height,Weight and Vital Signs: Height 6 ft Weight 157.85 kg Assessment and Plan Assessment Anesthesia Assessment: Chart Reviewed Final Anesthetic Review Family History of Problems with Anesthesia: No History of Problems with Anesthesia: No Documented by User: Lauren Hammond MD 07/21/24 07:33 [facility] Past Medical History Medical History Diabetes HTN (hypertension) Morbid obesity Neuropathy Borderline diabetic Chronic back pain Colon cancer screening Family History Family History Other Family history unknown Surgical History Surgical History History of facial surgery History of colostomy reversal Status post ablation of incompetent vein using laser Social History Social History Unable to assess alcohol history related to: Unknown Patient Tobacco Use Status: Tobacco use Unknown Advance Directives: No Advance Directives Information Provided: Yes Advance Directives on File: No Meds Allergies Allergy/AdvReac Type Severity Reaction Status Date / Time famotidine Allergy Itching Verified 07/21/24 07:20 epidural medication Allergy Unknown vomiting - Uncoded 02/14/24 09:48 hallucinations Home Medications ?Medication ?Instructions ?Recorded ?Confirmed ?Last Taken ?Type gabapentin 100 mg capsule 300 mg PO TID 05/19/21 07/03/24 07/07/24 History metoprolol succinate 50 mg 100 mg PO DAILY 05/19/21 07/03/24 07/07/24 History tablet,extended release 24 hr simvastatin 20 mg tablet 20 mg PO BEDTIME 05/19/21 07/03/24 Unknown History sulindac 200 mg tablet 200 mg PO BID 05/19/21 07/03/24 Unknown History trazodone 300 mg tablet 300 mg PO BEDTIME 05/19/21 07/03/24 Unknown History losartan 50 mg tablet 100 mg PO DAILY 12/22/21 07/03/24 Unknown History glyburide 2.5 mg tablet 2.5 mg PO BID 07/03/24 07/03/24 Unknown History melatonin 5 mg tablet 5 mg PO BEDTIME 07/03/24 07/03/24 Unknown History gqbujvtiweka-adrjctjq-gufada tablet 1 tab PO DAILY 07/03/24 07/03/24 Unknown History risperidone 0.5 mg tablet 0.5 mg PO BID 07/03/24 07/03/24 Unknown History Imodium 07/07/24 07/07/24 History Exam Airway Mallampati Class: III TM Dist: >3cm Neck ROM: Limited Loose/Missing/Broken Teeth: No Heart: RRR Lungs: CTA Assessment and Plan Assessment Anesthesia Assessment: Anesthesia Plan Discussed Final Anesthetic Review NPO: Yes ASA Class: III Final Preanesthetic Review: Meds/Allgs Chart Reviewed, Consent Obtained/Reviewed and Anes Risks/Benef Reviewed Patient Risk: Intermediate Procedure Risk: Low Anesthetic Plan Anesthetic Plan: MAC: Disposition: Standard PACU
[2024-07-21 07:27] VITALS: BP 152/71; PULSE 60; RESP 14; TEMP 36.7; O2SAT 95
[2024-07-21] MEDS: Lactated Ringers 500 ML 50 ML IV (07:38)
[2024-07-21] MEDS: Tetracaine HCl/PF 0.5% Oph Sol 4 ML DROPS 1 DROP EYE-RIGHT (07:38)
[2024-07-21] MEDS: Tropicamide 1 % Ophth Sol 3 ML BTL 1 DROP EYE-RIGHT ×3 (07:39→07:44)
[2024-07-21] MEDS: Cyclopentolate 1 % Ophth Sol 2 ML DRPBTL 1 DROP EYE-RIGHT ×3 (07:39→07:44)
[2024-07-21] MEDS: Ketorolac Tromethamine 0.5% Op 5 ML DROPS 1 DROP EYE-RIGHT ×3 (07:40→07:45)
[2024-07-21] MEDS: Phenylephrine HCL 2.5% Oph SoL 2 ML BOTTLE 1 DROP EYE-RIGHT ×3 (07:41→07:46)
[2024-07-21 07:47] VITALS: BP 152/71; PULSE 60; RESP 14; TEMP 36.7; O2SAT 95
[2024-07-21 07:58] LABS: Glucose, Whole Blood 113 mg/dL (60-115)
--- NOTE | 2024-07-21 08:22 | MHC.SHP ---
Pre-Procedural Eval Section A - 24 Hr Update-Section A only Date of Service: 07/21/24 The patient is an INPATIENT: No Changes since office visit: No Cold of Flu in the past 2 weeks, No New Medical Problems, No Changes in Medication and No Patient answered all questions The patient has been examined within 24 hours of the surgical procedure. The History & Physical has been completed within 30 days and I have reviewed it.: Yes Section B - Complete if H&P > 30 days Chief Complaint: Age-related nuclear cataract, right eye Allergies: Allergies Allergy/AdvReac Type Severity Reaction Status Date / Time famotidine Allergy Itching Verified 07/21/24 07:20 epidural medication Allergy Unknown vomiting - Uncoded 02/14/24 09:48 hallucinations Plan Diagnosis/Plan: Unchanged I have reviewed the history and physical and performed a pertinent physical examination on my patient. No changes have occurred unless specified. Time Spent With Patient Time: Total time managing care of this patient today ____ minutes.
--- NOTE | 2024-07-21 08:23 | P.PCNO_ITS ---
Ophthalmology Procedure Procedure Date of Service: 07/21/24 Ophthalmology Viscoelastic: Healon Duet Dual Pack Pro Ophthalmology Lenses: IOL Acrysof MP - MA60AC (21) Procedure Notes: PREOPERATIVE DIAGNOSIS: Decreased visual acuity right eye secondary to cataract POSTOPERATIVE DIAGNOSIS: Same PROCEDURE: Right cataract extraction with intraocular lens insertion SURGEON: Wong Suarez M.D. ANESTHESIA: Topical/MAC ESTIMATED BLOOD LOSS: None COMPLICATIONS: None After obtaining informed consent, the patient was brought to the operating room suite and placed in the supine position. After adequate sedation per anesthesia, topical drops of Tetracaine were given to the right eye. The eye was then prepped and draped in the usual sterile fashion. The operating room microscope was then positioned over the operative eye and a lid speculum placed. A paracentesis was created. Viscoelastic was then instilled into the anterior chamber. A three plane incision was then created temporally, utilizing a 2.85 mm keratome. Capsulotomy forceps were then utilized to create a circular tear capsulotomy. Hydrodissection and hydrodelineation were carried out until adequate mobilization of the nucleus occurred. Phacoemulsification was then utilized to remove the dense central nucl eus followed by removal of the cortical material utilizing the automated aspiration irrigation unit. Viscoelastic was instilled into the posterior capsular bag followed by placement of a posterior chamber intraocular lens without difficulty. The residual Viscoelastic was then removed utilizing the automated IA machine. The wound was checked and found to be watertight. The patient tolerated the procedure well and the lid speculum was removed. Intracameral injection of Vigamox 0.1 mL followed by a subtenon injection of Kenalog-40 0.2 mL were administered. The patient will be seen in the a.m.
[2024-07-21 08:54] VITALS: BP 142/71; PULSE 54; RESP 16; TEMP 36.4; O2SAT 97
== END 2024-07-21 08:56 | disposition home or self-care (01) ==
PROVIDERS: PCP Internal Medicine; Visit Provider Ophthalmology
PROC: (CPT 66985; principal; 2024-07-21 08:30)
DX: H25.11 Age-related nuclear cataract, right eye (principal); H52.4 Presbyopia; H35.033 Hypertensive retinopathy, bilateral; H04.123 Dry eye syndrome of bilateral lacrimal glands; H31.003 Unspecified chorioretinal scars, bilateral; E11.9 Type 2 diabetes mellitus without complications; I10 Essential (primary) hypertension; E78.00 Pure hypercholesterolemia, unspecified; Z79.84 Long term (current) use of oral hypoglycemic drugs; Z79.899 Other long term (current) drug therapy; Z88.8 Allergy status to other drugs, medicaments and biological substances; Z87.891 Personal history of nicotine dependence
CPT/HCPCS: 66984; 82947; J2250; J3301; V2630

== ENCOUNTER 2025-01-09 14:34 | Outpatient (AMB) | payer MEDICARE, SELFPAY ==
--- NOTE | 2025-01-09 15:15 | MHC.PC.OV ---
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 Accompanied by: Self / Same As Patient Allergies famotidine Allergy (Verified 01/09/25 15:52) Itching epidural medication Allergy (Unknown, Uncoded 01/09/25 15:52) vomiting - hallucinations Medication List - Last Reconciled 01/09/25 by Sylvie Larsen PA-C blood sugar diagnostic (GeniusMatcherTouch Ultra Test strips) As directed blood-glucose meter (Copinyuch Ultra2 Meter) As directed gabapentin 300 mg PO TID glipizide 5 mg PO DAILY hydrochlorothiazide 12.5 mg PO DAILY [Imodium ] lancets (GeniusMatcherTouch Delica Plus Lancet) As directed losartan 100 mg PO DAILY melatonin 5 mg PO BEDTIME metoprolol succinate ER 100 mg PO DAILY dxogjgsunerb-nfmjjibg-wvtzrr 1 tab PO DAILY risperidone 3 mg PO BEDTIME simvastatin 20 mg PO BEDTIME sulindac 200 mg PO BID trazodone 300 mg PO BEDTIME Tobacco use date assessed: 01/09/25 Dental Screening Dental Screen Date: 01/09/25 Did you have a dental visit in the last 12 months?: Yes Did you have a dental problem in the last 6 months where you did not have access to dental care?: No Was dental information given to patient?: Patient has dentist HPI Establish Care / Dr. Reed HPI Details The patient is a 64-year-old male presenting for the establishment of care and management of chronic conditions. The patient has a history of Type 2 Diabetes Mellitus, managed with glipizide 5 mg daily. He is unsure of his last hemoglobin A1c level, and his blood sugar readings vary between two machines, with the newer machine reading higher. His last visit was on September 30, 2024, with Dr. Zimmer, where blood sugar testing was reviewed. The patient reports a history of hypertension, with current medications including losartan 100 mg daily and metoprolol extended release 100 mg daily. His blood pressure was measured at 151/76 mmHg during the visit, and he did not take his blood pressure medication on the day of the visit. He has not been on hydrochlorothiazide previously, and it was recommended to help manage his blood pressure. The patient experiences knee, hip, and back pain, which are not new issues for him. For colon cancer screening, the patient uses Cologuard due to having only half of his intestines, with the last test conducted last year. Social History - Family status: The patient's manages his medications. [facility] Medical History (Updated 01/09/25 @ 16:32 by Sylvie Larsen PA-C) Morbid obesity with BMI of 50.0-59.9, adult Type 2 diabetes mellitus with hemoglobin A1c goal of less than 7.0% General medical exam Diabetes HTN (hypertension) Morbid obesity Neuropathy Borderline diabetic Chronic back pain Colon cancer screening Surgical History History of facial surgery History of colostomy reversal Status post ablation of incompetent vein using laser Family History Father No problems noted. Mother BP (high blood pressure) Brother Stroke Social History Housing: House Alcohol intake: current Alcohol intake frequency: a few times a week Patient Tobacco Use Status: Former Tobacco user service: No Current occupational status: retired Cognitive needs: No Hearing needs: No Vision needs: No Questionnaire PHQ-9 Over the last 2 weeks, how often have you been bothered by any of the following problems? 1. Little interest or pleasure in doing things: not at all 2. Feeling down, depressed, or hopeless: not at all 3. Trouble falling or staying asleep, or sleeping too much: not at all 4. Feeling tired or having little energy: not at all 5. Poor appetite or overeating: not at all 6. Feeling bad about yourself - or that you are a failure or have let yourself or your family down: not at all 7. Trouble concentrating on things, such as reading the newspaper or watching television: not at all 8. Moving or speaking so slowly that other people could have noticed. Or the opposite - being so fidgety or restless that you have been moving around a lot more than usual: not at all 9. Thoughts that you would be better off or of hurting yourself in some way: not at all Total score: 0 Depression Screening Interpretation: Negative Depression Screening Done: Yes 30827 - PHQ-9 Billing: Yes Source: Developed by Drs. Karthik Cortez, Edith Castle, Taj Talbert and colleagues, with an educational caitlin from [employer]. Thrive Questionnaire Date Thrive assessed: 01/09/25 I am a: Patient What is your living situation today?: I have a steady place to live Within the past 12 months, did the food you bought not last and you didn't have the money to get more?: Never true Within the past 12 months, did you worry whether your food would run out before you got money to buy more?: Never true Do you have trouble paying for medicines?: No Do you have trouble getting transportation to medical appointments?: No Do you have trouble paying your heating and electricity bill?: No Do you have trouble taking care of your child, family member or friend?: No Do you have trouble with day-to-day activities such as bathing, preparing meals, shopping, managing finances, etc.?: No Are you currently unemployed and looking for a job?: No Are you interested in more education?: No Please select the resources that you would like help with: None THRIVE Score: 0 AUDIT C Alcohol Use Questionnaire (AUDIT-C) 1. How often do you have a drink containing alcohol?: 4 or more times a week 2. How many drinks containing alcohol do you have on a typical day when you are drinking?: 1 or 2 3. How often do you have six or more drinks on one occasion?: Never Total Score: 4 Score Reviewed/Action Taken: No ALBERTO-7 AMB Questionnaire ALBERTO-7 Date ALBERTO - 7 assessed: 01/09/25 Feeling nervous, anxious, or on edge: 0 = Not at all Not being able to stop or control worryin = Not at all Worrying too much about different things: 0 = Not at all Trouble relaxin = Not at all Being so restless that it is hard to sit still: 0 = Not at all Becoming easily annoyed or irritable: 0 = Not at all Feeling afraid as if something awful might happen: 0 = Not at all Total ALBERTO-7 score (0-4 normal; 5-9 mild; 10-14 moderate; 15-21 severe): 0 Source: Developed by Drs. Karthik Cortez, Edith Castle, Taj Talbert and colleagues, with an educational caitlin from [employer]. ALBERTO-7 Assessment Billing ALBERTO-7 Assessment Tool: ALBERTO-7 Assessment 77732 Review of Systems Const Details: - Musculoskeletal: Reports knee, hip, and back pain. Denies new onset of these pains. - Cardiovascular: Denies chest pain, dizziness, or palpitations. All systems reviewed & are unremarkable except as noted in HPI and below Physical exam (Primary Care) Vital Signs: Last Vital Signs Temp 97.7 F 01/09/25 15:20 Pulse 84 01/09/25 15:20 Resp 18 01/09/25 15:20 BP 151/76 H 01/09/25 15:20 Pulse Ox 95 01/09/25 15:20 Oxygen Delivery Method Room Air 01/09/25 15:20 Care Plan Goal for BP management: <140/90 patient to continue losartan 100 mg daily and metoprolol extended release 100 mg will also add hydrochlorothiazide 12.5 mg daily and have patient keep blood pressure diary return in 1 month with blood pressure diary and blood pressure BMI result Body Mass Index 50.3 BMI Assessment/Plan discussion: High BMI High, discussed plan: lifestyle, weight reduction, dietary, physical activity, alcohol moderation and other Tobacco/Smoking Status: Tobacco use Status Tobacco use date assessed 01/09/25 01/09/25 15:19 Patient Tobacco Use Status Former Tobacco user 01/09/25 15:32 PHQ-9: PHQ-9 Score PHQ-9: Total score 0 01/09/25 16:21 Depression Screening Interpretation: Negative Thrive Assessment: Date of Thrive Assessment Date Thrive assessed 01/09/25 01/09/25 15:19 Const Other: Appearance: Alert. Oriented X3. No acute distress. Head: Normal external exam. Normocephalic. Atraumatic. Eyes: Pupils are equal, round, and reactive to light. Extraocular movements intact. Conjunctiva and sclera normal. Eyelids normal. Throat: Pharynx normal. Uvula midline. Moist mucous membranes. Neck: Normal inspection. Neck supple. Full range of motion. Cardiovascular: Normal heart rate and rhythm. Heart sound normal. No murmurs noted. Pulses normal throughout. Blood pressure is 151/76, slightly high. Respiratory: No respiratory distress. Painless inspiration. Breath sounds normal. No wheezes/rales/rhonchi noted. Chest nontender. No accessory muscle usage noted or decreased air movement noted. Abdomen: Soft and nontender. Bowel sounds normal in all 4 quadrants. No distention noted. No organomegaly noted. No visible injury noted. Back: No costovertebral angle tenderness. Full range of motion noted. Skin: Skin warm and dry. Normal skin color. Normal skin turgor. No rashes/lesions/lacerations noted. Extremities: No lower extremity edema. Extremities exhibit normal range of motion. Extremities nontender. Neuro: Oriented X 3. No motor deficit. No sensory deficit. Reflexes normal. Results AMB Hemoglobin A1c AMB Hemoglobin A1c 5.4 % Last Edit by RAJIV Villegas on 01/09/25 16:22 Results Reviewed Results Reviewed: Laboratory Last Values Hgb A1c (Clinic) 5.4 % (4.0-6.0) 01/09/25 15:40 - Labs: Hemoglobin A1c 5.4 Coding Level of Care Code New Pt Level 4 (80525) Complex EM visit Add On G2211 Diagnoses Type 2 diabetes mellitus with hemoglobin A1c goal of less than 7.0% E11.9 HTN (hypertension) I10 Colon cancer screening Z12.11 Morbid obesity with BMI of 50.0-59.9, adult E66.01; Z68.43 Additional Codes ALBERTO-7 Assessment Billing - ALBERTO-7 Assessment Tool: ALBERTO-7 Assessment 74959 ([id number]) PHQ-9 - 17035 - PHQ-9 Billing: Yes ([id number]) Assessment & Plan Assessment & Plan (1) Type 2 diabetes mellitus with hemoglobin A1c goal of less than 7.0%: Code(s): E11.9 - Type 2 diabetes mellitus without complications Category: Medical Plan: The patient will continue on glipizide 5 mg daily, and a hemoglobin A1c test will be conducted to assess current glycemic control. He is advised to use the newer blood glucose monitor for more accurate readings. (2) HTN (hypertension): Code(s): I10 - Essential (primary) hypertension Category: Medical Plan: The patient's blood pressure was elevated at 151/76 mmHg, and he did not take his medication on the day of the visit. Hydrochlorothiazide 12.5 mg daily was added to his regimen to help manage his blood pressure, and he will return in one month for follow-up and repeat blood work. (3) Colon cancer screening: Code(s): Z12.11 - Encounter for screening for malignant neoplasm of colon Category: Medical Plan: The patient uses Cologuard for colon cancer screening due to having only half of his intestines, with the last test conducted last year. He is advised to follow up with Dr. Calvillo for future screenings. (4) Morbid obesity with BMI of 50.0-59.9, adult: Code(s): E66.01 - Morbid (severe) obesity due to excess calories; Z68.43 - Body mass index [BMI] 50.0-59.9, adult Category: Medical Plan: Patient to improve diet and exercise regimen. Condition is chronic and stable continue to monitor. Plan Plan Patient was informed and verbally consented to the use of an ambient scribe for clinic note documentation during this visit. 1. Type 2 Diabetes Mellitus The patient will continue on glipizide 5 mg daily, and a hemoglobin A1c test will be conducted to assess current glycemic control. He is advised to use the newer blood glucose monitor for more accurate readings. 2. Hypertension The patient's blood pressure was elevated at 151/76 mmHg, and he did not take his medication on the day of the visit. Hydrochlorothiazide 12.5 mg daily was added to his regimen to help manage his blood pressure, and he will return in one month for follow-up and repeat blood work. 3. Colon Cancer Screening The patient uses Cologuard for colon cancer screening due to having only half of his intestines, with the last test conducted last year. He is advised to follow up with Dr. Calvillo for future screenings. During the visit, I discussed with the patient the management of his Type 2 Diabetes Mellitus, emphasizing the importance of regular monitoring and the use of the newer glucose monitor for accuracy. We also addressed his hypertension, adding hydrochlorothiazide to his regimen and planning a follow-up in one month to assess the effectiveness of the treatment. For colon cancer screening, we confirmed the use of Cologuard and advised follow-up with Dr. Calvillo for future screenings. Orders: Orders AMB Hemoglobin A1c Today R73.03 - Prediabetes Basic Metabolic Panel Today Z00.00 - Encounter for general adult medical examination without abnormal findings Magnesium Today Z00.00 - Encounter for general adult medical examination without abnormal findings Medications: New hydrochlorothiazide 12.5 mg PO DAILY 90 tabs 3RF simvastatin 20 mg PO BEDTIME 90 tabs 3RF trazodone 300 mg PO BEDTIME 90 tabs 3RF Patient Instructions: - Continue taking glipizide 5 mg daily for diabetes management. - Use the newer blood glucose monitor for more accurate readings. - Start taking hydrochlorothiazide 12.5 mg daily for blood pressure management. - Return in one month for follow-up and repeat blood work. - Follow up with Dr. Calvillo for future colon cancer screenings.
[2025-01-09 15:20] VITALS: BP 151/76; PULSE 84; RESP 18; TEMP 36.5; O2SAT 95; BMI 50.3
== END 2025-01-09 15:52 | disposition home or self-care (01) ==
LOC: HO.HMCSH 14:34
PROVIDERS: PCP Internal Medicine; Visit Provider Physician Assistant Medical
DX: E11.9 Type 2 diabetes mellitus without complications (principal); I10 Essential (primary) hypertension; Z12.11 Encounter for screening for malignant neoplasm of colon; E66.01 Morbid (severe) obesity due to excess calories; Z68.43 Body mass index [BMI] 50.0-59.9, adult; R73.03 Prediabetes

== ENCOUNTER → 2025-01-09 14:34 | Outpatient (BNVA) | payer MEDICARE, SELFPAY | PROVIDERS: PCP Internal Medicine; Visit Provider Physician Assistant Medical | DX: E11.9 Type 2 diabetes mellitus without complications (principal); I10 Essential (primary) hypertension; E66.01 Morbid (severe) obesity due to excess calories; Z68.43 Body mass index [BMI] 50.0-59.9, adult; Z79.84 Long term (current) use of oral hypoglycemic drugs; Z13.31 Encounter for screening for depression; Z13.39 Encounter for screening examination for other mental health and behavioral disorders | CPT/HCPCS: 83036; 96127; 99202 ==

== ENCOUNTER 2025-02-02 07:57 | Outpatient (REF) | payer MEDICARE, SELFPAY ==
--- OUTSIDE RECORDS SUMMARY | 2025-02-02 07:59 | XMS_ITS | Patient Health Record ---
Author Organization [facility] Clementina r[address]y [place] Address [address] [place] [address] Care Team Providers Care Broke Man Name Role Phone Jesus Reed MD Primary Care Provider Unavailab nestor Hilda Fairbanks Unavailable [phone] Reason For Referral No Information Medications Medication SIG (Take, Route, Frequency, Duration) Notes Start Date End Date Status Sulindac 200 MG 1 tablet with food O rally Twice a day 07/13/2015 Active traZODone HCl 100 MG 1 tablet at bedtime Orally Once a day 07/13/2015 Active Cephalexin 500 MG 1 capsule Orally Twi a day 07/13/2015 Active Ziprasidone HCl 40 MG 1 capsule with jose de jesus d Orally Twice a day 07/13/2015 Active Simvastatin 20 MG 1 tablet in the even ing Orally Once a day 07/13/2015 Active Ziprasidone HCl 20 MG 1 capsule with jose de jesus d Orally Twice a day 07/13/2015 Active Metoprolol Succinate ER 25 MG 1 tablet Orally Once a day 07/13/2015 Active Centrum Silver Activ e Social History Tobacco use other than smoking: Question Answer Notes Are you an other tobacco user? No Problems No Known Problems Plan Of Treatment Pending Test Test Name Order Date [id number] Plate 07/15/2015 37992- Debride <25 sq cm 08/09/2015 Insurance Providers Payer Name Payer Address Payer Phone Subscriber Number Group Number Insured Name Patient Relationship to Insured Coverage Start Date Coverage End Date [facility] [address] [place] [address] [id number] Jean-Pierre Benson Self - patient is the insured Medical (General) History Medical History History ICD Code Arthritis Cancer High blood pressure Surgical History Surgery Date(Month/Year) colostomy 2013
[2025-02-02 11:23] LABS: Anion Gap 19 (12-20); Blood Urea Nitrogen 11 mg/dL (9-16); Calcium 9.4 mg/dL (8.4-10.2); Carbon Dioxide 24 mmol/L (22-29); Chloride 104 mmol/L (96-108); Estimated Glomerular Filt Rate > 60; Magnesium 2.0 mg/dL (1.6-2.6); Potassium 4.6 mmol/L (3.3-5.1); Sodium 142 mmol/L (135-145)
== END 2025-02-02 07:58 | disposition home or self-care (01) ==
LOC: HO.10HDL 07:57
PROVIDERS: Visit Provider Physician Assistant Medical
DX: Z00.00 Encounter for general adult medical examination without abnormal findings (principal)
CPT/HCPCS: 36415; 80048; 83735

== ENCOUNTER 2025-02-10 14:03 | Outpatient (AMB) | payer MEDICARE, SELFPAY ==
--- NOTE | 2025-02-10 14:09 | A.OFFPC_ITS ---
Vital Signs 02/10/25 14:33 Height 5 ft 10.47 in Weight 356 lb 8 oz BMI 50.5 BP 131/62 Blood Pressure Location Lt brachial Position Sitting Respiration 18 Pulse 82 Pulse Source Pulse Oximeter Temp 97.3 F Temp Source Temporal Artery Scan Pulse Oximetry (%) 95 Oxygen Delivery Method Room Air Intake Visit Reasons: 1 month f/u Party Plan Selling Distributor Required: No Accompanied by: Self / Same As Patient Allergies famotidine Allergy (Verified 02/10/25 16:12) Itching epidural medication Allergy (Unknown, Uncoded 02/10/25 16:12) vomiting - hallucinations Medication List - Last Reconciled 02/10/25 by Sylvie Larsen PA-C blood sugar diagnostic (Biosensiauch Ultra Test strips) TEST BLOOD SUGAR DAILY blood-glucose meter (Biosensiauch Ultra2 Meter) As directed gabapentin 300 mg PO TID glipizide 5 mg PO DAILY hydrochlorothiazide 12.5 mg PO DAILY [Imodium ] lancets (Location LabsTouch Delica Plus Lancet) As directed losartan 100 mg PO DAILY melatonin 5 mg PO BEDTIME metoprolol succinate ER 100 mg PO DAILY bozyyrwsrotv-wpimfszq-abhdby 1 tab PO DAILY risperidone 3 mg PO BEDTIME simvastatin 20 mg PO BEDTIME sulindac 200 mg PO BID 90 days trazodone 300 mg PO BEDTIME Tobacco use date assessed: 01/09/25 Dental Screening Dental Screen Date: 01/09/25 Did you have a dental visit in the last 12 months?: Yes Did you have a dental problem in the last 6 months where you did not have access to dental care?: No Was dental information given to patient?: Patient has dentist HPI 1 month f/u HPI Details The patient is a 65-year-old male presenting with hypertension management. His blood pressure readings have varied, with the highest being 149/80 mmHg and the lowest at 111/70 mmHg. The patient has been monitoring his blood pressure at home, although he forgot to bring his log to the appointment. The patient also has a history of prediabetes, with an A1c of 5.4% noted last month. He has been advised to monitor his blood glucose levels regularly, and his current status is stable. The patient reports lumbar radiculopathy, with a confirmed issue at L4 and L5 vertebrae. He experiences intermittent sharp pain in the hip, which may be due to nerve compression. The patient has osteoarthritis affecting his hip and knees, leading to significant discomfort. He is currently taking Sulindac, an NSAID, which provide s relief from pain and stiffness. Peripheral neuropathy is present, with numbness and occasional electric shock- like sensations in the hands and feet. The patient describes the sensation as sharyn to touching a 220-volt outlet. Social History - Exercise: Patient walks around the [place] but reports hobbling rather than walking due to discomfort. - Nutrition: Consumes a diet including b reakfast sandwiches, strawberries, grapes, and occasional indulgence in birthday cake. [facility] Medical History (Updated 02/10/25 @ 16:16 by Sylvie Larsen PA-C) Peripheral neuropathy Osteoarthritis Lumbar radiculopathy Prediabetes Morbid obesity with BMI of 50.0-59.9, adult Type 2 diabetes mellitus with hemoglobin A1c goal of less than 7.0% General medical exam Diabetes HTN (hypertension) Morbid obesity Neuropathy Borderline diabetic Chronic back pain Colon cancer screening (~02/14/24) Surgical History History of facial surgery History of colostomy reversal Status post ablation of incompetent vein using laser Family History Father No problems noted. Mother BP (high blood pressure) Brother Stroke Social History Housing: House Alcohol intake: current Alcohol intake frequency: a few times a week Patient Tobacco Use Status: Former Tobacco user service: No Current occupational status: retired Cognitive needs: No Hearing needs: No Vision needs: No Questionnaire PHQ-9 Over the last 2 weeks, how often have you been bothered by any of the following problems? 1. Little interest or pleasure in doing things: not at all 2. Feeling down, depressed, or hopeless: not at all 3. Trouble falling or staying asleep, or sleeping too much: not at all 4. Feeling tired or having little energy: not at all 5. Poor appetite or overeating: not at all 6. Feeling bad about yourself - or that you are a failure or have let yourself or your family down: not at all 7. Trouble concentrating on things, such as reading the newspaper or watching television: not at all 8. Moving or speaking so slowly that other people could have noticed. Or the opposite - being so fidgety or restless that you have been moving around a lot more than usual: not at all 9. Thoughts that you would be better off or of hurting yourself in some way: not at all Total score: 0 Depression Screening Interpretation: Negative Depression Screening Done: Yes 55219 - PHQ-9 Billing: Yes Source: Developed by Drs. Karthik Cortez, Edith Castle, Taj Talbert and colleagues, with an educational caitlin from [employer]. Thrive Questionnaire Date Thrive assessed: 01/09/25 I am a: Patient What is your living situation today?: I have a steady place to live Within the past 12 months, did the food you bought not last and you didn't have the money to get more?: Never true Within the past 12 months, did you worry whether your food would run out before you got money to buy more?: Never true Do you have trouble paying for medicines?: No Do you have trouble getting transportation to medical appointments?: No Do you have trouble paying your heating and electricity bill?: No Do you have trouble taking care of your child, family member or friend?: No Do you have trouble with day-to-day activities such as bathing, preparing meals, shopping, managing finances, etc.?: No Are you currently unemployed and looking for a job?: No Are you interested in more education?: No Please select the resources that you would like help with: None THRIVE Score: 0 AUDIT C Alcohol Use Questionnaire (AUDIT-C) 1. How often do you have a drink containing alcohol?: 4 or more times a week 2. How many drinks containing alcohol do you have on a typical day when you are drinking?: 1 or 2 3. How often do you have six or more drinks on one occasion?: Never Total Score: 4 Score Reviewed/Action Taken: No ALBERTO-7 AMB Questionnaire ALBERTO-7 Date ALBERTO - 7 assessed: 01/09/25 Feeling nervous, anxious, or on edge: 0 = Not at all Not being able to stop or control worryin = Not at all Worrying too much about different things: 0 = Not at all Trouble relaxin = Not at all Being so restless that it is hard to sit still: 0 = Not at all Becoming easily annoyed or irritable: 0 = Not at all Feeling afraid as if something awful might happen: 0 = Not at all Total ALBERTO-7 score (0-4 normal; 5-9 mild; 10-14 moderate; 15-21 severe): 0 Source: Developed by Drs. Karthik Cortez, Edith Castle, Taj Talbert and colleagues, with an educational caitlin from [employer]. ALBERTO-7 Assessment Billing ALBERTO-7 Assessment Tool: ALBERTO-7 Assessment 84912 Review of Systems Const Details: - Cardiovascular: Reports variable blood pressure readings, highest at 149/80 mmHg, lowest at 111/70 mmHg. - Musculoskeletal: Reports intermittent sharp pain in the hip, possibly due to nerve compression. - Neurological: Reports numbness and electric shock-like sensations in hands and feet. All systems reviewed & are unremarkable except as noted in HPI and below Physical exam (Primary Care) Vital Signs: Last Vital Signs Temp 97.3 F 02/10/25 14:33 Pulse 82 02/10/25 14:33 Resp 18 02/10/25 14:33 BP 131/62 02/10/25 14:33 Pulse Ox 95 02/10/25 14:33 Oxygen Delivery Method Room Air 02/10/25 14:33 Care Plan Goal for BP management: <140/90 at Goal BMI result Body Mass Index 50.5 BMI Assessment/Plan discussion: High BMI High, discussed plan: lifestyle, weight reduction, dietary, physical activity, alcohol moderation and other Tobacco/Smoking Status: Tobacco use Status Tobacco use date assessed 01/09/25 02/10/25 14:11 Patient Tobacco Use Status Former Tobacco user 02/10/25 14:11 PHQ-9: PHQ-9 Score PHQ-9: Total score 0 02/10/25 15:18 Depression Screening Interpretation: Negative Thrive Assessment: Date of Thrive Assessment Date Thrive assessed 01/09/25 02/10/25 14:11 Const Other: Appearance: Alert. Oriented X3. No acute distress. Head: Normal external exam. Normocephalic. Atraumatic. Eyes: Pupils are equal, round, and reactive to light. Extraocular movements intact. Conjunctiva and sclera normal. Eyelids normal. Throat: Pharynx normal. Uvula midline. Moist mucous membranes. Neck: Normal inspection. Neck supple. Full range of motion. Cardiovascular: Normal heart rate and rhythm. Heart sound normal. No murmurs noted. Pulses normal throughout. Respiratory: No respiratory distress. Painless inspiration. Breath sounds normal. No wheezes/rales/rhonchi noted. No accessory muscle usage noted or decreased air movement noted. Back: Full range of motion noted. L4 and L5 problem noted with associated back pain. Skin: Skin warm and dry. Normal skin color. Normal skin turgor. No rashes/lesions/lacerations noted. Extremities: Extremities exhibit normal range of motion. Severe arthritis in both knees noted. Neuropathy in hands and feet noted. Neuro: Oriented X 3. No motor deficit. No sensory deficit. Reflexes normal. Neuropathy in hands and feet noted, especially in the middle finger and ring finger. Results Reviewed Results Reviewed: - Labs: A1c of 5.4% indicating prediabetes. Coding Level of Care Code Est Pt Level 4 (19312) Complex EM visit Add On G2211 Diagnoses HTN (hypertension) I10 Prediabetes R73.03 Lumbar radiculopathy M54.16 Osteoarthritis M19.90 Peripheral neuropathy G62.9 Additional Codes ALBERTO-7 Assessment Billing - ALBERTO-7 Assessment Tool: ALBERTO-7 Assessment 27969 ([id number]) PHQ-9 - 36678 - PHQ-9 Billing: Yes ([id number]) Assessment & Plan Assessment & Plan (1) HTN (hypertension): Code(s): I10 - Essential (primary) hypertension Category: Medical Plan: The patient is advised to continue monitoring blood pressure at home and maintain a healthy lifestyle to manage hypertension. Blood pressure readings have been variable, but generally controlled, with the highest recorded at 149/80 mmHg. (2) Prediabetes: Code(s): R73.03 - Prediabetes Category: Medical Plan: The patient is advised to continue monitoring blood glucose levels regularly. The A1c level was 5.4% last month, indicating good control. (3) Lumbar radiculopathy: Code(s): M54.16 - Radiculopathy, lumbar region Category: Medical Plan: The patient reports lumbar radiculopathy with confirmed L4 and L5 involvement. Management includes considering physical therapy and medication for pain relief. (4) Osteoarthritis: Code(s): M19.90 - Unspecified osteoarthritis, unspecified site Category: Medical Plan: The patient is currently taking Cylindac, which provides relief from osteoarthritis symptoms. Continued use of NSAIDs is recommended for managing pain and stiffness. (5) Peripheral neuropathy: Code(s): G62.9 - Polyneuropathy, unspecified Category: Medical Plan: The patient experiences numbness and electric shock-like sensations in the hands and feet, consistent with peripheral neuropathy. Management includes monitoring symptoms and adjusting medications as needed. Plan Plan Patient was informed and verbally consented to the use of an ambient scribe for clinic note documentation during this visit. 1. Essential Hypertension The patient is advised to continue monitoring blood pressure at home and maintain a healthy lifestyle to manage hypertension. Blood pressure readings have been variable, but generally controlled, with the highest recorded at 149/80 mmHg. 2. Prediabetes The patient is advised to continue monitoring blood glucose levels regularly. The A1c level was 5.4% last month, indicating good control. 3. Lumbar Radiculopathy The patient reports lumbar radiculopathy with confirmed L4 and L5 involvement. Management includes considering physical therapy and medication for pain relief. 4. Osteoarthritis The patient is currently taking Cylindac, which provides relief from osteoarthritis symptoms. Continued use of NSAIDs is recommended for managing pain and stiffness. 5. Peripheral Neuropathy The patient experiences numbness and electric shock-like sensations in the hands and feet, consistent with peripheral neuropathy. Management includes monitoring symptoms and adjusting medications as needed. During the visit, we discussed the importance of maintaining blood pressure control and monitoring blood glucose levels regularly. We also reviewed the management of lumbar radiculopathy and osteoarthritis, emphasizing the role of medication and potential physical therapy. Patient Instructions: - Continue monitoring blood pressure and blood glucose levels regularly. - Maintain a healthy diet and lifestyle to manage prediabetes and hypertension. - Take Cylindac as prescribed for osteoarthritis pain relief. - Consider physical therapy for lumbar radiculopathy if symptoms persist.
[2025-02-10 14:33] VITALS: BP 131/62; PULSE 82; RESP 18; TEMP 36.3; O2SAT 95; BMI 50.5
== END 2025-02-10 15:18 | disposition home or self-care (01) ==
LOC: HO.HMCSH 14:03
PROVIDERS: PCP Internal Medicine; Visit Provider Physician Assistant Medical
DX: I10 Essential (primary) hypertension (principal); R73.03 Prediabetes; M54.16 Radiculopathy, lumbar region; M19.90 Unspecified osteoarthritis, unspecified site; G62.9 Polyneuropathy, unspecified

== ENCOUNTER → 2025-02-10 14:03 | Outpatient (BNVA) | payer MEDICARE, SELFPAY | PROVIDERS: PCP Internal Medicine; Visit Provider Physician Assistant Medical | DX: I10 Essential (primary) hypertension (principal); R73.03 Prediabetes; M54.16 Radiculopathy, lumbar region; M16.10 Unilateral primary osteoarthritis, unspecified hip; M17.10 Unilateral primary osteoarthritis, unspecified knee; G62.9 Polyneuropathy, unspecified; M19.90 Unspecified osteoarthritis, unspecified site | CPT/HCPCS: 96127; 99212 ==

== ENCOUNTER 2025-03-23 14:10 | Outpatient (REF) | payer MEDICARE, SELFPAY ==
[2025-03-23 17:21] LABS: Appearance Urine Clear; Glucose Urine UA Negative (Negative); PH 5.5 (5.0-9.0); Specific Gravity - Urine 1.020 (1.005-1.025); UMIC TRIGGER UACC YES
[2025-03-23 18:24] LABS: UACC Culture Trigger YES
== END 2025-03-23 14:11 | disposition home or self-care (01) ==
LOC: HO.LAB 14:10
PROVIDERS: PCP Internal Medicine; Visit Provider Physician Assistant Medical
DX: Z00.00 Encounter for general adult medical examination without abnormal findings (principal); Z23 Encounter for immunization; I10 Essential (primary) hypertension; E11.9 Type 2 diabetes mellitus without complications; N40.0 Benign prostatic hyperplasia without lower urinary tract symptoms; Z79.84 Long term (current) use of oral hypoglycemic drugs; Z79.899 Other long term (current) drug therapy
CPT/HCPCS: 81001; 87086; 90471; 90656; 96127; 99212

== ENCOUNTER 2025-03-23 14:10 | Outpatient (AMB) | payer MEDICARE, SELFPAY ==
--- OUTSIDE RECORDS SUMMARY | 2025-03-23 14:13 | XMS_ITS | Patient Health Record ---
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 Name Role Phone Jesus Reed MD Primary Care Provider Unavailab nestor Hilda Fairbanks Unavailable [phone] Reason For Referral No Information Medications Medication [...] Treatment Pending Test Test Name Order Date 10088-Vyfllsiq Plate 07/15/2015 [id number]- Debride <25 sq cm 08/09/2015 Insurance Providers Payer Name Payer Address Payer Phone Subscriber Number Group Number Insured Name Patient Relationship to Insured Coverage Start Date Coverage End Date [facility] [address] [place] [address] [phone] [id number] Jean-Pierre Benson Self - patient is the insured Medical (General) History Medical History History ICD Code Arthritis Cancer High blood pressure Surgical History Surgery Date(Month/Year) colostomy 2013
--- NOTE | 2025-03-23 14:21 | MHC.PC.OV ---
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 Accompanied by: Self / Same As Patient Allergies famotidine Allergy (Verified 03/23/25 17:34) Itching epidural medication Allergy (Unknown, Uncoded 03/23/25 17:34) vomiting - hallucinations Medication List - Last Reconciled 03/23/25 by Sylvie Larsen PA-C blood sugar diagnostic ([employer] Ultra Test strips) TEST BLOOD SUGAR DAILY blood-glucose meter ([employer] Ultra2 Meter) As directed gabapentin 300 mg PO TID glipizide 5 mg PO DAILY hydrochlorothiazide 25 mg PO DAILY 30 days [Imodium ] lancets (EV[employer]ouch Delica Plus Lancet) As directed losartan 100 mg PO DAILY melatonin 5 mg PO BEDTIME metoprolol succinate ER 100 mg PO DAILY raeuniggloni-qwdpxpxc-gyjngq 1 tab PO DAILY risperidone 3 mg PO BEDTIME simvastatin 20 mg PO BEDTIME sulindac 200 mg PO BID 90 days tamsulosin (Flomax) 0.4 mg PO BEDTIME trazodone 300 mg PO BEDTIME Tobacco use date assessed: 03/23/25 Dental Screening Dental Screen Date: 03/23/25 Did you have a dental visit in the last 12 months?: No Did you have a dental problem in the last 6 months where you did not have access to dental care?: No Was dental information given to patient?: Patient has dentist HPI Handicap form HPI Details The patient is a 65-year-old male presenting with management of hypertension and diabetes, and to address urinary symptoms. The patient has a history of hypertension, with current blood pressure readings consistently around 140/150s over 80s, despite being on hydrochlorothiazide and losartan. He reports measuring his blood pressure mostly in the afternoon and evening. The patient has been advised to increase hydrochlorothiazide dosage to 25 mg due to persistent elevated readings. The patient has type 2 diabetes mellitus, with a hemoglobin A1c of 5.4% as of January 09. He has made dietary changes, including reducing intake of rice, bread, and potatoes, which has helped maintain his blood sugar levels mostly below 140 mg/dL. He is currently on glipizide 5 mg for diabetes management. The patient reports urinary symptoms, including a weak stream and occasional hematuria, which have occurred sporadically over the past 10 years. He has been referred to urology for further evaluation and started on tamsulosin to alleviate symptoms associated with benign prostatic hyperplasia. The patient also has a history of hyperlipidemia, osteoarthritis, coronary artery disease, and issues with L4 and L5 vertebrae. He experiences fatigue and shortness of breath with ordinary activities, such as walking up stairs, but feels comfortable at rest. Social History - Dietary changes: Reduced intake of rice, bread, and potatoes to manage blood sugar levels. [facility] Medical History (Updated 03/23/25 @ 17:38 by Sylvie Larsen PA-C) BPH (benign prostatic hyperplasia) Hematuria Weak urine stream Peripheral neuropathy Osteoarthritis Lumbar radiculopathy Prediabetes Morbid obesity with BMI of 50.0-59.9, adult Type 2 diabetes mellitus with hemoglobin A1c goal of less than 7.0% General medical exam Diabetes HTN (hypertension) Morbid obesity Neuropathy Borderline diabetic Chronic back pain Colon cancer screening (~02/14/24) Surgical History History of facial surgery History of colostomy reversal Status post ablation of incompetent vein using laser Family History Father No problems noted. Mother BP (high blood pressure) Brother Stroke Social History Housing: House Alcohol intake: current Alcohol intake frequency: a few times a week Patient Tobacco Use Status: Former Tobacco user service: No Current occupational status: retired and disabled Cognitive needs: Yes (occasionally a cane) Hearing needs: No Vision needs: No Questionnaire PHQ-9 Over the last 2 weeks, how often have you been bothered by any of the following problems? 1. Little interest or pleasure in doing things: not at all 2. Feeling down, depressed, or hopeless: not at all 3. Trouble falling or staying asleep, or sleeping too much: not at all 4. Feeling tired or having little energy: not at all 5. Poor appetite or overeating: not at all 6. Feeling bad about yourself - or that you are a failure or have let yourself or your family down: not at all 7. Trouble concentrating on things, such as reading the newspaper or watching television: not at all 8. Moving or speaking so slowly that other people could have noticed. Or the opposite - being so fidgety or restless that you have been moving around a lot more than usual: not at all 9. Thoughts that you would be better off or of hurting yourself in some way: not at all Total score: 0 Depression Screening Interpretation: Negative Depression Screening Done: Yes 56906 - PHQ-9 Billing: Yes Source: Developed by Drs. Karthik Cortez, Edith Castle, Taj Talbert and colleagues, with an educational caitlin from [employer]. Thrive Questionnaire Date Thrive assessed: 03/23/25 I am a: Patient What is your living situation today?: I have a steady place to live Within the past 12 months, did the food you bought not last and you didn't have the money to get more?: Never true Within the past 12 months, did you worry whether your food would run out before you got money to buy more?: Never true Do you have trouble paying for medicines?: No Do you have trouble getting transportation to medical appointments?: No Do you have trouble paying your heating and electricity bill?: No Do you have trouble taking care of your child, family member or friend?: No Do you have trouble with day-to-day activities such as bathing, preparing meals, shopping, managing finances, etc.?: No Are you currently unemployed and looking for a job?: No Are you interested in more education?: No Please select the resources that you would like help with: None THRIVE Score: 0 AUDIT C Alcohol Use Questionnaire (AUDIT-C) 1. How often do you have a drink containing alcohol?: 4 or more times a week 2. How many drinks containing alcohol do you have on a typical day when you are drinking?: 1 or 2 3. How often do you have six or more drinks on one occasion?: Never Total Score: 4 Score Reviewed/Action Taken: No ALBERTO-7 AMB Questionnaire ALBERTO-7 Date ALBERTO - 7 assessed: 03/23/25 Feeling nervous, anxious, or on edge: 0 = Not at all Not being able to stop or control worryin = Not at all Worrying too much about different things: 0 = Not at all Trouble relaxin = Not at all Being so restless that it is hard to sit still: 0 = Not at all Becoming easily annoyed or irritable: 0 = Not at all Feeling afraid as if something awful might happen: 0 = Not at all Total ALBERTO-7 score (0-4 normal; 5-9 mild; 10-14 moderate; 15-21 severe): 0 Source: Developed by Drs. Karthik Cortez, Edith Castle, Taj Talbert and colleagues, with an educational caitlin from [employer]. ALBERTO-7 Assessment Billing ALBERTO-7 Assessment Tool: ALBERTO-7 Assessment 49286 Review of Systems Const Details: - Cardiovascular: Reports fatigue and dyspnea on exertion. Denies chest pain. - Genitourinary: Reports weak urinary stream and occasional hematuria. All systems reviewed & are unremarkable except as noted in HPI and below Physical exam (Primary Care) Vital Signs: Last Vital Signs Temp 97.2 F 03/23/25 14:22 Pulse 90 03/23/25 14:22 Resp 16 03/23/25 14:22 BP 154/79 H 03/23/25 14:22 Pulse Ox 96 03/23/25 14:22 Oxygen Delivery Method Room Air 03/23/25 14:22 Oxygen Flow Rate 96 03/23/25 14:22 Care Plan Goal for BP management: <140/90 will increase hydrochlorothiazide from 12.5-25 mg BMI result Body Mass Index 50.3 BMI Assessment/Plan discussion: High BMI High, discussed plan: lifestyle, weight reduction, dietary, physical activity, alcohol moderation and other Tobacco/Smoking Status: Tobacco use Status Tobacco use date assessed 03/23/25 03/23/25 14:42 Patient Tobacco Use Status Former Tobacco user 03/23/25 14:42 PHQ-9: PHQ-9 Score PHQ-9: Total score 0 03/23/25 14:48 Depression Screening Interpretation: Negative Thrive Assessment: Date of Thrive Assessment Date Thrive assessed 03/23/25 03/23/25 14:42 Const Other: Appearance: Alert. Oriented X3. No acute distress. Head: Normal external exam. Normocephalic. Atraumatic. Eyes: Pupils are equal, round, and reactive to light. Extraocular movements intact. Conjunctiva and sclera normal. Eyelids normal. Throat: Pharynx normal. Uvula midline. Moist mucous membranes. Neck: Normal inspection. Neck supple. Full range of motion. Cardiovascular: Regular heart rate and rhythm. Respiratory: No respiratory distress. Painless inspiration. Back: Full range of motion noted. Skin: Skin warm and dry. Normal skin color. Extremities: Extremities exhibit normal range of motion. Occasionally uses a cane for support. Neuro: Oriented X 3. No motor deficit. No sensory deficit. Reflexes normal. Office Procedures Flu Questionnaire Does the patient have a severe egg allergy?: No Does the patient have severe life threatening allergies?: No Does the patient have a fever or illness today?: No Has the patient ever had Guillain-[place] Syndrome?: No Has the patient ever had any past reaction to a flu shot?: No Immunizations Fluarix [id number] (PF) 45 mcg (15 mcg x 3)/0.5 mL IM syringe Performing Provider: Sylvie Larsen PA-C [facility] Administered by: RAJIV Villegas on 03/23/25 14:48 Dose Route Admin Location Dispensed Lot Number Expiration Date [facility] Real Estate Acquisition Analyst 0.5 mL IM Left Deltoid 0.5 mL [id number] 12/08/25 [id number] [employer] VIS Given Date VIS Provided VIS Publication Date 03/23/25 Single Vaccine 24 Eligibility Eligibility Date Funding Source Not [facility] Eligible 03/23/25 Private Results Reviewed Results Reviewed: - Labs: Hemoglobin A1c 5.4% as of January 09. Coding Level of Care Code Est Pt Level 4 (89778) Complex EM visit Add On G2211 Diagnoses HTN (hypertension) I10 Type 2 diabetes mellitus with hemoglobin A1c goal of less than 7.0% E11.9 BPH (benign prostatic hyperplasia) N40.0 Additional Codes ALBERTO-7 Assessment Billing - ALBERTO-7 Assessment Tool: ALBERTO-7 Assessment 83097 ([id number]) PHQ-9 - 28977 - PHQ-9 Billing: Yes ([id number]) Assessment & Plan Assessment & Plan (1) HTN (hypertension): Code(s): I10 - Essential (primary) hypertension Category: Medical Plan: The patient will increase hydrochlorothiazide dosage to 25 mg to better manage blood pressure, with a follow-up in one month to assess efficacy and check for potential electrolyte imbalances. (2) Type 2 diabetes mellitus with hemoglobin A1c goal of less than 7.0%: Code(s): E11.9 - Type 2 diabetes mellitus without complications Category: Medical Plan: The patient will continue current management with glipizide 5 mg and dietary modifications, with a follow-up A1c test scheduled for April to monitor glycemic control. (3) BPH (benign prostatic hyperplasia): Code(s): N40.0 - Benign prostatic hyperplasia without lower urinary tract symptoms Category: Medical Plan: The patient has been started on tamsulosin to alleviate urinary symptoms and referred to urology for further evaluation. Plan Plan Patient was informed and verbally consented to the use of an ambient scribe for clinic note documentation during this visit. 1. Essential Hypertension The patient will increase hydrochlorothiazide dosage to 25 mg to better manage blood pressure, with a follow-up in one month to assess efficacy and check for potential electrolyte imbalances. 2. Type 2 Diabetes Mellitus The patient will continue current management with glipizide 5 mg and dietary modifications, with a follow-up A1c test scheduled for April to monitor glycemic control. 3. Benign Prostatic Hyperplasia The patient has been started on tamsulosin to alleviate urinary symptoms and referred to urology for further evaluation. I discussed with the patient the plan to increase hydrochlorothiazide to 25 mg to manage hypertension and the importance of monitoring for electrolyte imbalances. We also reviewed the current diabetes management plan, emphasizing dietary modifications and the upcoming A1c test. For urinary symptoms, I explained the initiation of tamsulosin and the referral to urology for further evaluation. Orders: Orders UA CC w/rflx Micro + Cult Today Z00.00 - Encounter for general adult medical examination without abnormal findings Influenza 2039-1706 Immunization Today Z23 - Encounter for immunization Basic Metabolic Panel Today Z00.00 - Encounter for general adult medical examination without abnormal findings Referrals Urology Referral R31.9 - Hematuria, unspecified, R39.12 - Poor urinary stream Medications: New tamsulosin (Flomax) 0.4 mg PO BEDTIME 90 caps 3RF Changed From hydrochlorothiazide 12.5 mg PO DAILY 90 tabs 3RF To hydrochlorothiazide 25 mg PO DAILY 30 tabs 0RF 30 days Patient Instructions: - Increase hydrochlorothiazide to 25 mg daily and monitor blood pressure regularly. - Continue dietary modifications to manage blood sugar levels. - Take tamsulosin as prescribed and follow up with urology as scheduled. - Return for follow-up in one month to reassess blood pressure and overall management.
[2025-03-23 14:22] VITALS: BP 154/79; PULSE 90; RESP 16; TEMP 36.2; O2SAT 96; BMI 50.3
== END 2025-03-23 15:13 | disposition home or self-care (01) ==
LOC: HO.HMCSH 14:10
PROVIDERS: PCP Internal Medicine; Visit Provider Physician Assistant Medical
DX: I10 Essential (primary) hypertension (principal); E11.9 Type 2 diabetes mellitus without complications; N40.0 Benign prostatic hyperplasia without lower urinary tract symptoms; Z23 Encounter for immunization

== ENCOUNTER 2025-04-22 08:00 | Outpatient (REF) | payer MEDICARE, SELFPAY ==
--- OUTSIDE RECORDS SUMMARY | 2025-04-22 08:02 | XMS_ITS | Patient Health Record ---
Author Organization [facility] Clementina [address] [place] Address [address] [place] [address] Care Team Providers Care Airline Stewardess Name Role Phone Jesus Reed MD Primary Care Provider Unavailab nestor Hilda Fairbanks Unavailable [phone] Reason For Referral No Information Medications Medication [...] Treatment Pending Test Test Name Order Date [id number]-Wxtoziml Plate 07/15/2015 75075- Debride <25 sq cm 08/09/2015 Insurance Providers Payer Name Payer Address Payer Phone Subscriber Number Group Number Insured Name Patient Relationship to Insured Coverage Start Date Coverage End Date [facility] [address] [place] [address] [id number] Jean-Pierre Benson Self - patient is the insured Medical (General) History Medical History History ICD Code Arthritis Cancer High blood pressure Surgical History Surgery Date(Month/Year) colostomy 2013
[2025-04-22 11:26] LABS: Anion Gap 19 (12-20); Blood Urea Nitrogen 13 mg/dL (9-16); Calcium 10.2 mg/dL (8.4-10.2); Carbon Dioxide 24 mmol/L (22-29); Chloride 104 mmol/L (96-108); Estimated Glomerular Filt Rate > 60; Potassium 4.0 mmol/L (3.3-5.1); Sodium 143 mmol/L (135-145)
[2025-04-22 11:27] LABS: Appearance Urine Clear; Glucose Urine UA Negative (Negative); PH 5.5 (5.0-9.0); Specific Gravity - Urine 1.025 (1.005-1.025); UMIC TRIGGER UACC YES
[2025-04-22 11:34] LABS: UACC Culture Trigger YES
== END 2025-04-22 08:01 | disposition home or self-care (01) ==
LOC: HO.10HDL 08:00
PROVIDERS: Visit Provider Physician Assistant Medical
DX: Z00.00 Encounter for general adult medical examination without abnormal findings (principal)
CPT/HCPCS: 36415; 80048; 81001; 81003; 87086

== ENCOUNTER 2025-04-30 14:10 | Outpatient (REF) | payer MEDICARE, SELFPAY ==
[2025-04-30 18:20] LABS: Appearance Urine Clear; Glucose Urine UA Negative (Negative); PH 5.5 (5.0-9.0); Specific Gravity - Urine 1.015 (1.005-1.025); UMIC TRIGGER UACC YES
[2025-04-30 18:22] LABS: UACC Culture Trigger YES
[2025-04-30 18:40] LABS: Microalbum/Creatinine Ratio Ur 66.2 ug/mg cr (<30)
== END 2025-04-30 14:11 | disposition home or self-care (01) ==
LOC: HO.LAB 14:10
PROVIDERS: PCP Physician Assistant Medical; Visit Provider Physician Assistant Medical
DX: Z00.00 Encounter for general adult medical examination without abnormal findings (principal); E11.9 Type 2 diabetes mellitus without complications; I10 Essential (primary) hypertension; R30.0 Dysuria; Z79.899 Other long term (current) drug therapy; Z28.21 Immunization not carried out because of patient refusal
CPT/HCPCS: 81001; 82043; 82570; 83036; 87086; 90471; 96127; 99212

== ENCOUNTER 2025-04-30 14:10 | Outpatient (AMB) | payer MEDICARE, SELFPAY ==
[2025-04-30 14:29] VITALS: BP 129/61; PULSE 62; RESP 16; TEMP 36.8; O2SAT 96; BMI 49.3
--- NOTE | 2025-04-30 14:29 | A.OFFPC_ITS ---
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 Accompanied by: Self / Same As Patient Allergies famotidine Allergy (Verified 04/30/25 16:55) Itching epidural medication Allergy (Unknown, Uncoded 04/30/25 16:55) vomiting - hallucinations Medication List - Last Reconciled 04/30/25 by Sylvie Larsen PA-C blood sugar diagnostic (TabSquareuch Ultra Test strips) TEST BLOOD SUGAR DAILY blood-glucose meter (TabSquareuch Ultra2 Meter) As directed gabapentin 300 mg PO TID 90 days glipizide 5 mg PO DAILY hydrochlorothiazide 25 mg PO DAILY [Imodium ] lancets (WengoTouch Delica Plus Lancet) As directed losartan 100 mg PO DAILY melatonin 5 mg PO BEDTIME metoprolol succinate ER 100 mg PO DAILY nplbmkkdcihe-jziifnov-lwyxdk 1 tab PO DAILY risperidone 3 mg PO BEDTIME simvastatin 20 mg PO BEDTIME sulindac 200 mg PO BID 90 days tamsulosin (Flomax) 0.4 mg PO BEDTIME trazodone 300 mg (2 x 150 mg) PO BEDTIME 90 days Tobacco use date assessed: 03/23/25 Dental Screening Dental Screen Date: 03/23/25 HPI HPI Comments History of Present Illness Details History of Present Illness The patient is a 65 year old individual presenting for a blood pressure check. The patient reports home blood pressure readings where the systolic pressure fluctuates between 140 mmHg and 145 mmHg, while the diastolic pressure is good. The patient's current antihypertensive regimen includes hydrochlorothiazide 25 mg, losartan 100 mg, and metoprolol extended-release 100 mg; the patient ran out of losartan and metoprolol and requires refills. The patient has a history of diabetes, with a hemoglobin A1c of 5.4% in January. The patient monitors blood glucose levels daily, maintains a log, and has noted that eating pretzels negatively impacts blood sugar levels. The patient reports experiencing mild pain with urination, rated as a 3-4 out of 10. A prior urine sample showed a high white blood cell count, which was suspected to be due to inadequate cleaning during sample collection. Regarding medications, the patient requests a change in the trazodone pre scription from a single 300 mg tablet to two 150 mg tablets to reduce the co- pay. The patient recently had fasting blood work done, but notes that not all ordered tests, such as a CBC, were completed. The sodium level from those labs was normal. Social History - Employment: The patient has been retir ed for approximately 3.5 years. - Nutrition: The patient is actively mon itoring food intake to manage blood sugar levels and has identified that pretzels adversely affect glucose levels. [facility] Medical History (Updated 04/30/25 @ 16:59 by Sylvie Larsen PA-C) Medication management Dysuria BPH (benign prostatic hyperplasia) Hematuria Weak urine stream Peripheral neuropathy Osteoarthritis Lumbar radiculopathy Prediabetes Morbid obesity with BMI of 50.0-59.9, adult Type 2 diabetes mellitus with hemoglobin A1c goal of less than 7.0% General medical exam Diabetes HTN (hypertension) Morbid obesity Neuropathy Borderline diabetic Chronic back pain Colon cancer screening (~02/14/24) Surgical History History of facial surgery History of colostomy reversal Status post ablation of incompetent vein using laser Family History Father No problems noted. Mother BP (high blood pressure) Brother Stroke Social History Housing: House Alcohol intake: current Alcohol intake frequency: a few times a week Patient Tobacco Use Status: Former Tobacco user service: No Current occupational status: retired and disabled Cognitive needs: Yes (occasionally a cane) Hearing needs: No Vision needs: No Questionnaire PHQ-9 Over the last 2 weeks, how often have you been bothered by any of the following problems? 1. Little interest or pleasure in doing things: not at all 2. Feeling down, depressed, or hopeless: not at all 3. Trouble falling or staying asleep, or sleeping too much: not at all 4. Feeling tired or having little energy: not at all 5. Poor appetite or overeating: not at all 6. Feeling bad about yourself - or that you are a failure or have let yourself or your family down: not at all 7. Trouble concentrating on things, such as reading the newspaper or watching television: not at all 8. Moving or speaking so slowly that other people could have noticed. Or the opposite - being so fidgety or restless that you have been moving around a lot more than usual: not at all 9. Thoughts that you would be better off or of hurting yourself in some way: not at all Total score: 0 Depression Screening Interpretation: Negative Depression Screening Done: Yes 73636 - PHQ-9 Billing: Yes Source: Developed by Drs. Karthik Cortez, Edith Castle, Taj Talbert and colleagues, with an educational caitlin from [employer]. Thrive Questionnaire Date Thrive assessed: 03/23/25 I am a: Patient What is your living situation today?: I have a steady place to live Within the past 12 months, did the food you bought not last and you didn't have the money to get more?: Never true Within the past 12 months, did you worry whether your food would run out before you got money to buy more?: Never true Do you have trouble paying for medicines?: No Do you have trouble getting transportation to medical appointments?: No Do you have trouble paying your heating and electricity bill?: No Do you have trouble taking care of your child, family member or friend?: No Do you have trouble with day-to-day activities such as bathing, preparing meals, shopping, managing finances, etc.?: No Are you currently unemployed and looking for a job?: No Are you interested in more education?: No Please select the resources that you would like help with: None THRIVE Score: 0 AUDIT C Alcohol Use Questionnaire (AUDIT-C) 1. How often do you have a drink containing alcohol?: 4 or more times a week 2. How many drinks containing alcohol do you have on a typical day when you are drinking?: 1 or 2 3. How often do you have six or more drinks on one occasion?: Never Total Score: 4 Score Reviewed/Action Taken: No ALBERTO-7 AMB Questionnaire ALBERTO-7 Date ALBERTO - 7 assessed: 03/23/25 Feeling nervous, anxious, or on edge: 0 = Not at all Not being able to stop or control worryin = Not at all Worrying too much about different things: 0 = Not at all Trouble relaxin = Not at all Being so restless that it is hard to sit still: 0 = Not at all Becoming easily annoyed or irritable: 0 = Not at all Feeling afraid as if something awful might happen: 0 = Not at all Total ALBERTO-7 score (0-4 normal; 5-9 mild; 10-14 moderate; 15-21 severe): 0 Source: Developed by Drs. Karthik Cortez, Edith Castle, Taj Talbert and colleagues, with an educational caitlin from [employer]. ALBERTO-7 Assessment Billing ALBERTO-7 Assessment Tool: ALBERTO-7 Assessment 30934 Review of Systems Narrative Review of Systems - Genitourinary: Reports mild pain with urination, rated 3-4 on a 10-point scale. Const All systems reviewed & are unremarkable except as noted in HPI and below Physical exam (Primary Care) Vital Signs: Last Vital Signs Temp 98.2 F 04/30/25 14:29 Pulse 62 04/30/25 14:29 Resp 16 04/30/25 14:29 BP 129/61 04/30/25 14:29 Pulse Ox 96 04/30/25 14:29 Oxygen Delivery Method Room Air 04/30/25 14:29 Care Plan Goal for BP management: <140/90 at Goal BMI result Body Mass Index 49.3 Tobacco/Smoking Status: Tobacco use Status Tobacco use date assessed 03/23/25 04/30/25 14:30 Patient Tobacco Use Status Former Tobacco user 04/30/25 14:30 PHQ-9: PHQ-9 Score PHQ-9: Total score 0 04/30/25 16:01 Depression Screening Interpretation: Negative Thrive Assessment: Date of Thrive Assessment Date Thrive assessed 03/23/25 04/30/25 14:30 Narrative Physical Exam Appearance: Alert. Oriented X3. No acute distress. Head: Normal external exam. Normocephalic. Atraumatic. Eyes: Pupils are equal, round, and reactive to light. Extraocular movements intact. Conjunctiva and sclera normal. Eyelids normal. Throat: Pharynx normal. Uvula midline. Moist mucous membranes. Neck: Normal inspection. Neck supple. Full range of motion. Cardiovascular: Normal heart rate and rhythm. Heart sound normal. No murmurs noted. Pulses normal throughout. Respiratory: No respiratory distress. Painless inspiration. Breath sounds normal. No wheezes/rales/rhonchi noted. Chest nontender. No accessory muscle usage noted or decreased air movement noted. Back: Full range of motion noted. Skin: Skin warm and dry. Normal skin color. Normal skin turgor. No rashes/lesions/lacerations noted. Extremities: Extremities exhibit normal range of motion. Office Procedures Flu Questionnaire Does the patient have a severe egg allergy?: No Does the patient have severe life threatening allergies?: No Does the patient have a fever or illness today?: No Has the patient ever had Guillain-[place] Syndrome?: No Has the patient ever had any past reaction to a flu shot?: No Results AMB Hemoglobin A1c AMB Hemoglobin A1c 5.8 % Last Edit by RAJIV Villegas on 04/30/25 16:02 Immunizations Fluarix [id number] (PF) 45 mcg (15 mcg x 3)/0.5 mL IM syringe Performing Provider: Sylvie Larsen PA-C [facility] [place] [facility] Documented (not given) by: RAJIV Villegas on 04/30/25 15:48 Reason Not Given: Patient Refused Results Reviewed Results Reviewed: Laboratory Last Values Hgb A1c (Clinic) 5.8 % (4.0-6.0) 04/30/25 16:01 Results - In-office labs: - Hemoglobin A1c: 5.8%. - Previous labs: - Hemoglobin A1c (January): 5.4%. - Sodium: Normal. - Urinalysis: Showed a high number of white blood cells. Coding Level of Care Code Est Pt Level 4 (70100) Complex visit Add On G2211 Diagnoses HTN (hypertension) I10 Type 2 diabetes mellitus with hemoglobin A1c goal of less than 7.0% E11.9 Dysuria R30.0 Medication management Z79.899 Additional Codes ALBERTO-7 Assessment Billing - ALBERTO-7 Assessment Tool: ALBERTO-7 Assessment 26345 ([id number]) PHQ-9 - 11354 - PHQ-9 Billing: Yes ([id number]) Assessment & Plan Assessment & Plan (1) HTN (hypertension): Code(s): I10 - Essential (primary) hypertension Category: Medical Plan: The patient's blood pressure is well-controlled in the office at 129/61 mmHg. Home readings are slightly elevated, with systolic pressures up to 145 mmHg. The current medication regimen will be continued, which includes hydrochlorothiazide 25 mg, losartan 100 mg, and metoprolol extended-release 100 mg. Refills for losartan and metoprolol will be sent to the pharmacy for a 90-day supply with three refills. A follow-up is scheduled in three months to monitor blood pressure. (2) Type 2 diabetes mellitus with hemoglobin A1c goal of less than 7.0%: Code(s): E11.9 - Type 2 diabetes mellitus without complications Category: Medical Plan: The patient's hemoglobin A1c is 5.8%, up slightly from 5.4% in January but still within the prediabetic range. The patient demonstrates good self-management by monitoring blood glucose and diet. The plan is to continue the current dose of glipizide 5 mg daily. A follow-up is scheduled in three months, with the possibility of extending it to six months if blood pressure and A1c remain stable. (3) Dysuria: Code(s): R30.0 - Dysuria Category: Medical Plan: The patient reports mild dysuria, and a previous urinalysis showed pyuria, which may have been due to sample contamination. A repeat urinalysis and a urine microalbumin test will be performed today to further evaluate these symptoms. The patient was instructed on proper clean-catch technique for the sample collection. Will also send ciprofloxacin 500 mg b.i.d. to the patient's [facility] at this time pending urine culture. (4) Medication management: Code(s): Z79.899 - Other mcfp (current) drug therapy Category: Medical Plan: Per the patient's request to reduce insurance co-pay, the trazodone prescription will be changed from 300 mg tablets to 150 mg tablets, with instructions to take two tablets daily. A 90-day supply of the new prescription will be sent. Plan Plan Patient was informed and verbally consented to the use of an ambient scribe for clinic note documentation during this visit. 1. Essential Hypertension The patient's blood pressure is well-controlled in the office at 129/61 mmHg. Home readings are slightly elevated, with systolic pressures up to 145 mmHg. The current medication regimen will be continued, which includes hydrochlorothiazide 25 mg, losartan 100 mg, and metoprolol extended-release 100 mg. Refills for losartan and metoprolol will be sent to the pharmacy for a 90-day supply with three refills. A follow-up is scheduled in three months to monitor blood pressure. 2. Type 2 Diabetes Mellitus The patient's hemoglobin A1c is 5.8%, up slightly from 5.4% in January but still within the prediabetic range. The patient demonstrates good self-management by monitoring blood glucose and diet. The plan is to continue the current dose of glipizide 5 mg daily. A follow-up is scheduled in three months, with the possibility of extending it to six months if blood pressure and A1c remain stable. 3. Dysuria The patient reports mild dysuria, and a previous urinalysis showed pyuria, which may have been due to sample contamination. A repeat urinalysis and a urine microalbumin test will be performed today to further evaluate these symptoms. The patient was instructed on proper clean-catch technique for the sample collection. Will also send ciprofloxacin 500 mg b.i.d. to the patient's pharmacy at this time pending urine culture. 4. Medication Management Per the patient's request to reduce insurance co-pay, the trazodone prescription will be changed from 300 mg tablets to 150 mg tablets, with instructions to take two tablets daily. A 90-day supply of the new prescription will be sent. Discussion Notes I discussed with the patient that the office blood pressure reading of 129/61 mmHg is excellent, and we will continue the current medication regimen. I informed the patient that I will send refills for losartan and metoprolol. We r eviewed the hemoglobin A1c result of 5.8%, noting it is a slight increase from the previous 5.4% but remains in the prediabetic range, so no changes to the medication are needed at this time. I explained the need to repeat the urine test due to the reported pain and the previous sample's high white blood cell count, and I instructed the patient on how to provide a clean sample. I confirmed the change of the trazodone prescription to 150 mg tablets to reduce co-pay, with instructions to take two tablets daily. I recommended a follow-up visit in three months to monitor blood pressure and diabetes, with the potential to extend to a six-month interval if the results are stable. Orders: Orders Microalbumin, Random (w Creat) Today E11.9 - Type 2 diabetes mellitus without complications AMB Hemoglobin A1c Today E11.9 - Type 2 diabetes mellitus without complications Influenza [id number] Immunization Today Z23 - Encounter for immunization UA CC w/rflx Micro + Cult Today Z00.00 - Encounter for general adult medical examination without abnormal findings Medications: New losartan 100 mg PO DAILY 90 tabs 3RF metoprolol succinate ER 100 mg PO DAILY 90 tabs 3RF ciprofloxacin HCl 500 mg PO BID 14 tabs 0RF 7 days Changed From trazodone 300 mg PO BEDTIME 90 tabs 3RF To trazodone 300 mg (2 x 150 mg) PO BEDTIME 180 tabs 3RF 90 days Patient Instructions: Patient Instructions - Continue taking your blood pressure medications (hydrochlorothiazide, losartan, metoprolol) and diabetes medication (glipizide) as prescribed. - Your prescription for trazodone is being changed. You will now take two 150 mg tablets once daily. - Please provide a urine sample before you leave today. Be sure to clean the area well with the provided wipe first. - Continue to monitor your diet and check your blood sugars at home. - Please schedule a follow-up appointment in three months.
--- OUTSIDE RECORDS SUMMARY | 2025-04-30 19:34 | XMS_ITS | Patient Health Record ---
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 Name Role Phone Jesus Reed MD Primary Care Provider Unavailab nestor Hilda Fairbanks Unavailable [phone] Reason For Referral No Information Medications Medication [...] Treatment Pending Test Test Name Order Date [id number] Plate 07/15/2015 82980- Debride <25 sq cm 08/09/2015 Insurance Providers Payer Name Payer Address Payer Phone Subscriber Number Group Number Insured Name Patient Relationship to Insured Coverage Start Date Coverage End Date [employer] [facility] [address] [place] [address] [id number] Jean-Pierre Benson Self - patient is the insured Medical (General) History Medical History History ICD Code Arthritis Cancer High blood pressure Surgical History Surgery Date(Month/Year) colostomy 2013
== END 2025-04-30 16:02 | disposition home or self-care (01) ==
LOC: HO.HMCSH 14:10
PROVIDERS: PCP Physician Assistant Medical; Visit Provider Physician Assistant Medical
DX: I10 Essential (primary) hypertension (principal); E11.9 Type 2 diabetes mellitus without complications; R30.0 Dysuria; Z79.899 Other long term (current) drug therapy; Z23 Encounter for immunization